=== PATIENT | male | born 1985 | race African-American/Black ===

== ENCOUNTER 2016-10-22 06:55 | Emergency (ER) | payer MEDICAID, OTHER ==
--- NOTE | 2016-10-22 07:15 | EDM.PDOC ---
ED HPI GENERAL MEDICAL PROBLEM - General Chief Complaint: Neck Problem Stated Complaint: NECK PAIN Time Seen by Provider: 10/22/16 07:15 Source of Information: Reports: Patient - History of Present Illness INITIAL COMMENTS - FREE TEXT/NARRATIVE: HISTORY AND PHYSICAL: History of present illness: []Patient presents with 2 small areas of abscess on his occiput, he states that he has had several abscesses in the past which were associated with ingrown hair is begins similar and he actually drained to the 3 lesions on his own over the last week. However now this morning he was able to express some thick exudate from one of the lesions in his nuchal folds and there is an area of redness and induration surrounding. I did perform incision and drainage of tooth lesions and was able to express exudate from the more distal lesion and a small amount as he had drained them earlier wounds were cleansed and explored a culture was taken No fever nausea vomiting chills sweats patient is able to move his neck and as full range of motion is limited due to pain is there is an area of induration approximately 1" x 3" ovarian nuchal fold Review of systems: As per history of present illness and below otherwise all systems reviewed and negative. Past medical history: As per history of present illness and as reviewed below otherwise noncontributory. Surgical history: As per history of present illness and as reviewed below otherwise noncontributory. Social history: No reported history of drug or alcohol abuse. Family history: As per history of present illness and as reviewed below otherwise noncontributory. Physical exam: HEENT: Atraumatic, normocephalic, pupils reactive, negative for conjunctival pallor or scleral icterus, mucous membranes moist, throat clear, neck supple, nontender, trachea midline. Lungs: Clear to auscultation, breath sounds equal bilaterally, chest nontender. Heart: S1S2, regular, negative for clicks, rubs, or JVD. Abdomen: Soft, nondistended, nontender. Negative for masses or hepatosplenomegaly. Negative for costovertebral tenderness. Pelvis: Stable nontender. Genitourinary: Deferred. Rectal: Deferred. Extremities: Atraumatic, negative for cords or calf pain. Neurovascular unremarkable. Neuro: Awake, alert, oriented. Cranial nerves II through XII unremarkable. Cerebellum unremarkable. Motor and sensory unremarkable throughout. Exam nonfocal. Skin as per history of present illness otherwise remarkable unremarkable Diagnostics: []Wound culture Therapeutics: []I&D Wound is flushed with sterile saline Packed with half-inch iodoform Rocephin 1 g IM Bactrim double strength by mouth now and twice a day #20 no refill Follow-up in clinic in 48 hours for recheck and wound care if unable to gain appointment return to ER for repacking and wound care Impression: []Abscess with surrounding cellulitis Definitive disposition and diagnosis as appropriate pending reevaluation and review of above. Neck Pain Score (Numeric/FACES): 10 - Related Data Allergies Allergy/AdvReac Type Severity Reaction Status Date / Time No Known Allergies Allergy Verified 06/20/13 16:54 Home Meds: Home Meds . [No Known Home Meds] 06/20/13 [History] Past Medical History - Past Health History Medical/Surgical History: Denies Medical/Surgical History Social & Family History - Alcohol Use Days Per Week of Alcohol Use: 0 - Recreational Drug Use Recreational Drug Use: No ED ROS GENERAL - Review of Systems Review Of Systems: ROS reveals no pertinent complaints other than HPI. ED EXAM, GENERAL - Physical Exam Exam: See Below Course - Vital Signs Last Recorded V/S: Last Vital Signs Temp 36.6 C 10/22/16 07:10 Pulse 109 H 10/22/16 07:10 Resp 16 10/22/16 07:10 BP 164/101 H 10/22/16 07:10 Pulse Ox 96 10/22/16 07:10 - Orders/Labs/Meds Orders: Active Orders 24 hr Category Date Time Status Sulfamethoxazole/Trimethoprim [Septra DS] Med 10/22/16 08:19 Once 1 tab PO ONETIME ONE cefTRIAXone [Rocephin] 1,000 mg Med 10/22/16 08:19 Ordered Lidocaine 1% [Xylocaine-MPF 1%] 4 ml IM ONETIME Medication Orders Ceftriaxone Sodium 1,000 mg/ (Lidocaine HCl) 4 mls @ 4 mls/sec IM ONETIME ONE Stop: 10/22/16 08:20 Meds: Medications Generic Name Dose Route Start Last Admin Trade Name Freq PRN Reason Stop Dose Admin Ceftriaxone Sodium 1,000 mg/ 4 mls @ 4 mls/sec 10/22/16 08:19 Lidocaine HCl IM 10/22/16 08:20 ONETIME ONE Discontinued Medications Generic Name Dose Route Start Last Admin Trade Name Fior PRN Reason Stop Dose Admin Lidocaine/Epinephrine 20 ml 10/22/16 07:32 Xylocaine 1% With Epinephrine 1:100,000 INJECT 10/22/16 07:33 ONETIME ONE Departure - Departure Time of Disposition: 08:24 Disposition: Home, Self-Care 01 Condition: Good Clinical Impression: Abscess, Cellulitis - Discharge Information Forms: ED Department Discharge Additional Instructions: Continue medication as prescribed Change dressing if becomes soiled or bleeds through Leave packing material in place until recheck Follow-up with the clinic in 48 hours for wound care, if unable to gain an appointment with the clinic return to emergency room for continued management Nursing will provide ER referral [facility] [address] [place] [id number] The following information is given to patients seen in the emergency department who are being discharged to home. This information is to outline your options for follow-up care. We provide all patients seen in our emergency department with a follow-up referral. The need for follow-up, as well as the timing and circumstances, are variable depending upon the specifics of your emergency department visit. If you don't have a primary care physician on staff, we will provide you with a referral. We always advise you to contact your personal physician following an emergency department visit to inform them of the circumstance of the visit and for follow-up with them and/or the need for any referrals to a consulting specialist. The emergency department will also refer you to a specialist when appropriate. This referral assures that you have the opportunity for follow-up care with a specialist. All of these measure are taken in an effort to provide you with optimal care, which includes your follow-up. Under all circumstances we always encourage you to contact your private physician who remains a resource for coordinating your care. When calling for follow-up care, please make the office aware that this follow-up is from your recent emergency room visit. If for any reason you are refused follow-up, please contact the [facility] emergency department at and asked to speak to the emergency department charge nurse. - My Orders Last 24 Hours: My Active Orders 10/22/16 08:19 Sulfamethoxazole/Trimethoprim [Septra DS] 1 tab PO ONETIME ONE cefTRIAXone [Rocephin] 1,000 mg Lidocaine 1% [Xylocaine-MPF 1%] 4 ml IM ONETIME - Assessment/Plan Last 24 Hours: My Active Orders 10/22/16 08:19 Sulfamethoxazole/Trimethoprim [Septra DS] 1 tab PO ONETIME ONE cefTRIAXone [Rocephin] 1,000 mg Lidocaine 1% [Xylocaine-MPF 1%] 4 ml IM ONETIME
[2016-10-22] MEDS ORDERED: Lidocaine 1% with EPINEPHrine 1:100,000 20 ML MDV INJECT ONE (07:32)
[2016-10-22] MEDS ORDERED: cefTRIAXone 1,000 MG in Lidocaine 1% 4 ML IM ONE (08:19)
[2016-10-22] MEDS ORDERED: Sulfamethoxazole/Trimethoprim 800-160 MG Tab PO ONE (08:19)
[2016-10-22 09:16] VITALS: BP 144/88
== END 2016-10-22 09:00 | disposition home or self-care (01) ==
LOC: EEVIPCON 06:55 → MW.ED 06:55
DX: L02.811 Cutaneous abscess of head [any part, except face] (principal); L03.811 Cellulitis of head [any part, except face]
CPT/HCPCS: 10061; 87070; 96372; 99283; A9270; J0696; 87077; 87186

== ENCOUNTER 2016-10-25 19:58 | Emergency (ER) | payer MEDICAID ==
--- NOTE | 2016-10-25 20:56 | EDM.PDOC ---
ED HPI GENERAL MEDICAL PROBLEM - General Chief Complaint: Wound Recheck Stated Complaint: BACK PAIN Time Seen by Provider: 10/25/16 20:53 Source of Information: Reports: Patient - History of Present Illness INITIAL COMMENTS - FREE TEXT/NARRATIVE: HISTORY AND PHYSICAL: History of present illness: Patient presents as a known patient to me is following with Dr. May for wound care, I performed I&D for him on Friday his packing came out of his wounds, cellulitis is improved to remains some induration over the nuchal fold I was able to per express about a half a teaspoon of exudate from the wound and flushed prior to repacking No fever nausea vomiting chills sweats Review of systems: As per history of present illness and below otherwise all systems reviewed and negative. Past medical history: As per history of present illness and as reviewed below otherwise noncontributory. Surgical history: As per history of present illness and as reviewed below otherwise noncontributory. Social history: No reported history of drug or alcohol abuse. Family history: As per history of present illness and as reviewed below otherwise noncontributory. Physical exam: HEENT: Atraumatic, normocephalic, pupils reactive, negative for conjunctival pallor or scleral icterus, mucous membranes moist, throat clear, neck supple, nontender, trachea midline. Lungs: Clear to auscultation, breath sounds equal bilaterally, chest nontender. Heart: S1S2, regular, negative for clicks, rubs, or JVD. Abdomen: Soft, nondistended, nontender. Negative for masses or hepatosplenomegaly. Negative for costovertebral tenderness. Pelvis: Stable nontender. Genitourinary: Deferred. Rectal: Deferred. Extremities: Atraumatic, negative for cords or calf pain. Neurovascular unremarkable. Neuro: Awake, alert, oriented. Cranial nerves II through XII unremarkable. Cerebellum unremarkable. Motor and sensory unremarkable throughout. Exam nonfocal. Skin I&D sites on the nuchal folds with induration 1" x 3" no redness warmth mild tenderness wound care as above Diagnostics: [] Therapeutics: []Continue Bactrim [place] when necessary as previously prescribed Wound is flushed and repacked Follow-up with Dr. May on Friday or return to ER as needed Impression: []Follow-up wound care Definitive disposition and diagnosis as appropriate pending reevaluation and review of above. back of neck area Pain Score (Numeric/FACES): 4 - Related Data Allergies Allergy/AdvReac Type Severity Reaction Status Date / Time No Known Allergies Allergy Verified 10/25/16 20:11 Home Meds: Home Meds . [No Known Home Meds] 06/20/13 [History] Past Medical History - Past Health History Medical/Surgical History: Denies Medical/Surgical History HEENT History: Reports: None Cardiovascular History: Reports: None Respiratory History: Reports: None Gastrointestinal History: Reports: None Genitourinary History: Reports: None Musculoskeletal History: Reports: None Neurological History: Reports: None Psychiatric History: Reports: None Endocrine/Metabolic History: Reports: None Hematologic History: Reports: None Immunologic History: Reports: None Oncologic (Cancer) History: Reports: None Dermatologic History: Reports: None - Infectious Disease History Infectious Disease History: Reports: Chicken Pox - Past Surgical History Dermatological Surgical History: Reports: Other (See Below) Social & Family History - Family History Family Medical History: Noncontributory - Tobacco Use Smoking Status *Q: Never Smoker Second Hand Smoke Exposure: No - Caffeine Use Caffeine Use: Reports: Soda - Alcohol Use Days Per Week of Alcohol Use: 0 - Recreational Drug Use Recreational Drug Use: No ED ROS GENERAL - Review of Systems Review Of Systems: ROS reveals no pertinent complaints other than HPI. ED EXAM, GENERAL - Physical Exam Exam: See Below Course - Vital Signs Last Recorded V/S: Last Vital Signs Temp 36.3 C 10/25/16 20:11 Pulse 92 10/25/16 20:11 Resp 18 10/25/16 20:11 BP 150/91 H 10/25/16 20:11 Pulse Ox 100 10/25/16 20:11 Departure - Departure Time of Disposition: 20:55 Disposition: Home, Self-Care 01 Condition: Good Clinical Impression: Abscess - Discharge Information Forms: ED Department Discharge Additional Instructions: T medication as prescribed Follow-up with Dr. May on Friday for continued wound care or return to ER as needed throughout the weekend The following information is given to patients seen in the emergency department who are being discharged to home. This information is to outline your options for follow-up care. We provide all patients seen in our emergency department with a follow-up referral. The need for follow-up, as well as the timing and circumstances, are variable depending upon the specifics of your emergency department visit. If you don't have a primary care physician on staff, we will provide you with a referral. We always advise you to contact your personal physician following an emergency department visit to inform them of the circumstance of the visit and for follow-up with them and/or the need for any referrals to a consulting specialist. The emergency department will also refer you to a specialist when appropriate. This referral assures that you have the opportunity for follow-up care with a specialist. All of these measure are taken in an effort to provide you with optimal care, which includes your follow-up. Under all circumstances we always encourage you to contact your private physician who remains a resource for coordinating your care. When calling for follow-up care, please make the office aware that this follow-up is from your recent emergency room visit. If for any reason you are refused follow-up, please contact the [facility] emergency department at and asked to speak to the emergency department charge nurse.
[2016-10-25 21:17] VITALS: BP 166/102
== END 2016-10-25 21:20 | disposition home or self-care (01) ==
LOC: MW.ED 19:58
DX: L02.11 Cutaneous abscess of neck (principal)
CPT/HCPCS: 99282

== ENCOUNTER 2016-11-13 14:51 | Inpatient (IN) | payer MEDICAID, SELFPAY ==
[2016-11-13] MEDS ORDERED: Insulin Regular, Human 100 Units/ML 10 ML Vial IVPUSH ONE ×2 (15:08→16:22)
[2016-11-13] MEDS ORDERED: Ondansetron 4 MG/2 ML SDV IVPUSH ONE (15:08)
[2016-11-13] MEDS ORDERED: Sodium Chloride 0.9% 1,000 ML IV ONE ×4 (15:08→17:39)
--- NOTE | 2016-11-13 15:24 | EDM.PDOC ---
ED HPI GENERAL MEDICAL PROBLEM - General Chief Complaint: Diabetic Complaint Stated Complaint: VOMITING Time Seen by Provider: 11/13/16 15:19 Source of Information: Reports: Patient, Old Records History Limitations: Reports: No Limitations - History of Present Illness INITIAL COMMENTS - FREE TEXT/NARRATIVE: HISTORY AND PHYSICAL: [] 31-year-old black male presenting with nausea vomiting 15 hours History of Present Illness: []This gentleman was diagnosed yesterday with diabetes/heme: A1c 14. Urine with over 1000 glucose Family history significant for mother and maternal grandmother with diabetes and hypertension. Patient has not seen medical personnel since he was a child /teenager until just recently with employment physical . Review of Systems: As per history of present illness and below otherwise all systems reviewed and negative. Past medical history: As per history of present illness and as reviewed below otherwise noncontributory. Surgical history: As per history of present illness and as reviewed below otherwise noncontributory. Social history: No reported history of drug or alcohol abuse. Family history: As per history of present illness and as reviewed below otherwise noncontributory. Physical exam: Alert and oriented male skin is moist - warm. HEENT: Atraumatic, normocehpalic, pupils reactive, negative for conjunctival pallor or scleral icterus, mucous membranes moist, throat clear, neck supple, nontender, trachea midline. Lungs: Clear to auscultation, breath sounds equal bilaterally, chest non tender. Heart: S1S2, regular, negative for clicks, rubs, or JVD. Abdomen: Soft, rounded, mild tenderness with palpation. No rebound no guarding. Negative for masses or hepatossplenmegaly. Negative for costovertebral tenderness. Pelvis: Stable nontender. Genitourinary: Deferred. Rectal: Deferred Extremities: Atraumatic, negative for cords or calf pain. No peripheral edema. Pulses 2+ pedal Neurovascular unremarkable. Neuro: Awake, alert, oriented. Cranial nerves II through XII unremarkable. Cerebellum unremarkable. Motor and sensory unremarkable throughout. Exam nonfocal. Have discussed case with Dr. Steel as well as Dr. Jef Potter and Dr. Potter is in agreement for inpatient admission for diabetic ketoacidosis Patient is tolerated all procedures well Diagnostics: [CBC CMP amylase lipase UA] Therapeutics: [IV normal saline, Zofran IV insulin and sodium bicarbonate] Impression: [Hyperglycemia] Diabetic ketoacidosis Plan: [] Admit to ICU Definitive disposition and diagnosis as appropriate pending reevaluation and review of above. Onset: Gradual Duration: Hour(s): ( 15) Right Flank Pain Score (Numeric/FACES): 6 - Related Data Allergies Allergy/AdvReac Type Severity Reaction Status Date / Time No Known Allergies Allergy Verified 11/13/16 15:11 Home Meds: Home Meds . [No Known Home Meds] 06/20/13 [History] Past Medical History - Past Health History Medical/Surgical History: Denies Medical/Surgical History HEENT History: Reports: None Cardiovascular History: Reports: None Respiratory History: Reports: None Gastrointestinal History: Reports: None Genitourinary History: Reports: None Musculoskeletal History: Reports: None Neurological History: Reports: None Psychiatric History: Reports: None Endocrine/Metabolic History: Reports: None Hematologic History: Reports: None Immunologic History: Reports: None Oncologic (Cancer) History: Reports: None Dermatologic History: Reports: None - Infectious Disease History Infectious Disease History: Reports: MRSA - Past Surgical History Dermatological Surgical History: Reports: Other (See Below) Social & Family History - Family History Family Medical History: Noncontributory - Tobacco Use Smoking Status *Q: Never Smoker Second Hand Smoke Exposure: No - Caffeine Use Caffeine Use: Reports: Soda - Alcohol Use Days Per Week of Alcohol Use: 0 - Recreational Drug Use Recreational Drug Use: No ED ROS GENERAL - Review of Systems Review Of Systems: ROS reveals no pertinent complaints other than HPI. ED EXAM GENERAL NO PERIP PULSE - Physical Exam Exam: See Below (see dictation) EKG INTERPRETATION EKG Date: 11/13/16 Rhythm: Other (sinus tach) Comparison: NA - No Prior EKG Course - Vital Signs Last Recorded V/S: Last Vital Signs Temp 35.9 C 11/13/16 15:12 Pulse 102 H 11/13/16 16:32 Resp 18 11/13/16 16:32 BP 128/81 11/13/16 16:32 Pulse Ox 100 11/13/16 16:32 - Orders/Labs/Meds Orders: Active Orders 24 hr Category Date Time Status Blood Glucose Check, Bedside [RC] ONETIME Care 11/13/16 16:01 Active EKG Documentation Completion [RC] STAT Care 11/13/16 16:25 Active Insulin Regular, Human [NovoLIN R] 100 unit Med 11/13/16 17:15 Active Sodium Chloride 0.9% [Normal Saline] 99 ml IV TITRATE Sodium Chloride 0.9% [Normal Saline] 1,000 ml Med 11/13/16 17:01 Active IV .Bolus Medication Orders Sodium Chloride (Normal Saline) 1,000 mls @ 999 mls/hr IV .Bolus ONE Stop: 11/13/16 18:01 Last Admin: 11/13/16 17:05 Dose: 999 mls/hr Insulin Human Regular 100 unit (/ Sodium Chloride) 100 mls @ 0 mls/hr IV TITRATE AURY; 0.1 UNIT/KG/HR PRN Reason: Protocol Labs: Laboratory Tests 11/13/16 11/13/16 11/13/16 Range/Units 15:02 15:12 15:12 WBC 12.19 H (4.0-11.0) K/uL RBC 6.23 H (4.50-5.90) M/uL Hgb 16.7 (13.0-17.0) g/dL Hct 50.3 H (38.0-50.0) % MCV 80.7 (80.0-98.0) fL MCH 26.8 L (27.0-32.0) pg MCHC 33.2 (31.0-37.0) g/dL RDW Std Deviation 48.0 (28.0-62.0) fl RDW Coeff of Eduardo 16 H (11.0-15.0) % Plt Count 235 (150-400) K/uL MPV 12.20 H (7.40-12.00) fL Neut % (Auto) 82.7 H (48.0-80.0) % Lymph % (Auto) 9.8 L (16.0-40.0) % [place] % (Auto) 7.3 (0.0-15.0) % Eos % (Auto) 0.0 (0.0-7.0) % Baso % (Auto) 0.2 (0.0-1.5) % Neut # (Auto) 10.1 H (1.4-5.7) K/uL Lymph # (Auto) 1.2 (0.6-2.4) K/uL [place] # (Auto) 0.9 H (0.0-0.8) K/uL Eos # (Auto) 0.0 (0.0-0.7) K/uL Baso # (Auto) 0.0 (0.0-0.1) K/uL Nucleated RBC % 0.0 /100WBC Nucleated RBCs # 0 K/uL ABG pH (7.35-7.45) ABG pCO2 (35-45) mmHG ABG pO2 (75-100) mmHG ABG HCO3 (22-26) mEq/L ABG Total CO2 ABG Base Excess (-2.0-2.0) Lactate (0.20-2.00) mmol/L Sodium 138 (136-146) mmol/L Potassium 4.4 (3.5-5.1) mmol/L Chloride 105 (98-110) mmol/L Carbon Dioxide 7 L (21-31) mmol/L BUN 16 (6.0-23.0) mg/dL Creatinine 2.2 H (0.6-1.5) mg/dL Est Cr Clr Drug Dosing 55.55 mL/min Estimated GFR (MDRD) 42.0 ml/min Glucose 442 H (60-110) mg/dL POC Glucose 351 H (60-110) mg/dL Calcium 10.0 (8.8-10.8) mg/dL Total Bilirubin 0.5 (0.1-1.5) mg/dL AST 13 (5-40) IU/L ALT 28 (8-54) IU/L Alkaline Phosphatase 174 H (40-150) Creatine Kinase 56 (9-236) IU/L CK-MB (CK-2) 0.6 (0-6.6) ng/ml Troponin I (0.0-0.29) NG/ML Total Protein 9.6 H (6.0-8.0) g/dL Albumin 4.9 (3.5-5.0) g/dL Globulin 4.7 H (2.0-3.5) g/dL Albumin/Globulin Ratio 1.0 L (1.3-2.8) Amylase (10-90) U/L Lipase (7-80) U/L Urine Color Urine Appearance Urine pH (5.0-8.0) Ur Specific [place] (1.001-1.035) Urine Protein (NEGATIVE) mg/dL Urine Glucose (UA) (NEGATIVE) mg/dL Urine Ketones (NEGATIVE) mg/dL Urine Occult Blood (NEGATIVE) Urine Nitrite (NEGATIVE) Urine Bilirubin (NEGATIVE) Urine Ictotest Urine Urobilinogen (<2.0) EU/dL Ur Leukocyte Esterase (NEGATIVE) Urine RBC (0-2/HPF) Urine WBC (0-5/HPF) Ur Epithelial Cells (NONE-FEW) Urine Bacteria (NEGATIVE) 11/13/16 11/13/16 11/13/16 Range/Units 15:12 15:12 15:12 WBC (4.0-11.0) K/uL RBC (4.50-5.90) M/uL Hgb (13.0-17.0) g/dL Hct (38.0-50.0) % MCV (80.0-98.0) fL MCH (27.0-32.0) pg MCHC (31.0-37.0) g/dL RDW Std Deviation (28.0-62.0) fl RDW Coeff of Eduardo (11.0-15.0) % Plt Count (150-400) K/uL MPV (7.40-12.00) fL Neut % (Auto) (48.0-80.0) % Lymph % (Auto) (16.0-40.0) % [place] % (Auto) (0.0-15.0) % Eos % (Auto) (0.0-7.0) % Baso % (Auto) (0.0-1.5) % Neut # (Auto) (1.4-5.7) K/uL Lymph # (Auto) (0.6-2.4) K/uL [place] # (Auto) (0.0-0.8) K/uL Eos # (Auto) (0.0-0.7) K/uL Baso # (Auto) (0.0-0.1) K/uL Nucleated RBC % /100WBC Nucleated RBCs # K/uL ABG pH (7.35-7.45) ABG pCO2 (35-45) mmHG ABG pO2 (75-100) mmHG ABG HCO3 (22-26) mEq/L ABG Total CO2 ABG Base Excess (-2.0-2.0) Lactate 2.9 H (0.20-2.00) mmol/L Sodium (136-146) mmol/L Potassium (3.5-5.1) mmol/L Chloride (98-110) mmol/L Carbon Dioxide (21-31) mmol/L BUN (6.0-23.0) mg/dL Creatinine (0.6-1.5) mg/dL Est Cr Clr Drug Dosing mL/min Estimated GFR (MDRD) ml/min Glucose (60-110) mg/dL POC Glucose (60-110) mg/dL Calcium (8.8-10.8) mg/dL Total Bilirubin (0.1-1.5) mg/dL AST (5-40) IU/L ALT (8-54) IU/L Alkaline Phosphatase (40-150) Creatine Kinase (9-236) IU/L CK-MB (CK-2) (0-6.6) ng/ml Troponin I < 0.10 (0.0-0.29) NG/ML Total Protein (6.0-8.0) g/dL Albumin (3.5-5.0) g/dL Globulin (2.0-3.5) g/dL Albumin/Globulin Ratio (1.3-2.8) Amylase 48 (10-90) U/L Lipase 33 (7-80) U/L Urine Color Urine Appearance Urine pH (5.0-8.0) Ur Specific [place] (1.001-1.035) Urine Protein (NEGATIVE) mg/dL Urine Glucose (UA) (NEGATIVE) mg/dL Urine Ketones (NEGATIVE) mg/dL Urine Occult Blood (NEGATIVE) Urine Nitrite (NEGATIVE) Urine Bilirubin (NEGATIVE) Urine Ictotest Urine Urobilinogen (<2.0) EU/dL Ur Leukocyte Esterase (NEGATIVE) Urine RBC (0-2/HPF) Urine WBC (0-5/HPF) Ur Epithelial Cells (NONE-FEW) Urine Bacteria (NEGATIVE) 11/13/16 11/13/16 11/13/16 Range/Units 16:13 16:20 16:50 WBC (4.0-11.0) K/uL RBC (4.50-5.90) M/uL Hgb (13.0-17.0) g/dL Hct (38.0-50.0) % MCV (80.0-98.0) fL MCH (27.0-32.0) pg MCHC (31.0-37.0) g/dL RDW Std Deviation (28.0-62.0) fl RDW Coeff of Eduardo (11.0-15.0) % Plt Count (150-400) K/uL MPV (7.40-12.00) fL Neut % (Auto) (48.0-80.0) % Lymph % (Auto) (16.0-40.0) % [place] % (Auto) (0.0-15.0) % Eos % (Auto) (0.0-7.0) % Baso % (Auto) (0.0-1.5) % Neut # (Auto) (1.4-5.7) K/uL Lymph # (Auto) (0.6-2.4) K/uL [place] # (Auto) (0.0-0.8) K/uL Eos # (Auto) (0.0-0.7) K/uL Baso # (Auto) (0.0-0.1) K/uL Nucleated RBC % /100WBC Nucleated RBCs # K/uL ABG pH 7.107 L* (7.35-7.45) ABG pCO2 14 L (35-45) mmHG ABG pO2 121 H (75-100) mmHG ABG HCO3 4 L (22-26) mEq/L ABG Total CO2 4.2 ABG Base Excess -22.9 L (-2.0-2.0) Lactate (0.20-2.00) mmol/L Sodium (136-146) mmol/L Potassium (3.5-5.1) mmol/L Chloride (98-110) mmol/L Carbon Dioxide (21-31) mmol/L BUN (6.0-23.0) mg/dL Creatinine (0.6-1.5) mg/dL Est Cr Clr Drug Dosing mL/min Estimated GFR (MDRD) ml/min Glucose (60-110) mg/dL POC Glucose 303 H (60-110) mg/dL Calcium (8.8-10.8) mg/dL Total Bilirubin (0.1-1.5) mg/dL AST (5-40) IU/L ALT (8-54) IU/L Alkaline Phosphatase (40-150) Creatine Kinase (9-236) IU/L CK-MB (CK-2) (0-6.6) ng/ml Troponin I (0.0-0.29) NG/ML Total Protein (6.0-8.0) g/dL Albumin (3.5-5.0) g/dL Globulin (2.0-3.5) g/dL Albumin/Globulin Ratio (1.3-2.8) Amylase (10-90) U/L Lipase (7-80) U/L Urine Color YELLOW Urine Appearance CLEAR Urine pH 5.5 (5.0-8.0) Ur Specific [place] >= 1.030 (1.001-1.035) Urine Protein 30 (NEGATIVE) mg/dL Urine Glucose (UA) 500 H (NEGATIVE) mg/dL Urine Ketones >=80 (NEGATIVE) mg/dL Urine Occult Blood MODERATE (NEGATIVE) Urine Nitrite NEGATIVE (NEGATIVE) Urine Bilirubin SMALL H (NEGATIVE) Urine Ictotest NEGATIVE Urine Urobilinogen 0.2 (<2.0) EU/dL Ur Leukocyte Esterase NEGATIVE (NEGATIVE) Urine RBC 0-3 (0-2/HPF) Urine WBC 0-1 (0-5/HPF) Ur Epithelial Cells RARE (NONE-FEW) Urine Bacteria RARE (NEGATIVE) Meds: Medications Generic Name Dose Route Start Last Admin Trade Name Freq PRN Reason Stop Dose Admin Sodium Chloride 1,000 mls @ 999 mls/hr 11/13/16 17:01 11/13/16 17:05 Normal Saline IV 11/13/16 18:01 999 mls/hr .Bolus ONE Administration Insulin Human Regular 100 unit 100 mls @ 0 mls/hr 11/13/16 17:15 / Sodium Chloride IV TITRATE AURY Protocol 0.1 UNIT/KG/HR Discontinued Medications Generic Name Dose Route Start Last Admin Trade Name Freq PRN Reason Stop Dose Admin Sodium Chloride 1,000 mls @ 999 mls/hr 11/13/16 15:08 11/13/16 15:17 Normal Saline IV 11/13/16 16:08 999 mls/hr STAT ONE Administration Sodium Chloride 1,000 mls @ 999 mls/hr 11/13/16 16:02 11/13/16 16:29 Normal Saline IV 11/13/16 17:02 999 mls/hr STAT ONE Administration Insulin Human Regular 5 unit 11/13/16 15:08 11/13/16 15:27 Novolin R IVPUSH 11/13/16 15:09 5 unit ONETIME ONE Administration Protocol Insulin Human Regular 5 unit 11/13/16 16:22 11/13/16 16:29 Novolin R IVPUSH 11/13/16 16:23 5 units ONETIME ONE Administration Protocol Ondansetron HCl 8 mg 11/13/16 15:08 11/13/16 15:23 Zofran IVPUSH 11/13/16 15:09 8 mg ONETIME ONE Administration Sodium Bicarbonate 5 meq 11/13/16 17:02 Sodium Bicarbonate 4.2% IVPUSH 11/13/16 17:03 NOW STA Departure - Departure Time of Disposition: 17:31 Disposition: Admitted As Inpatient 64 Condition: Fair Clinical Impression: Hyperglycemia Diabetic ketoacidosis Qualifiers: Diabetes mellitus type: other specified (including CORRY) Diabetes mellitus complication detail: without coma Qualified Code(s): E13.10 - Other specified diabetes mellitus with ketoacidosis without coma - Discharge Information - My Orders Last 24 Hours: My Active Orders 11/13/16 16:01 Blood Glucose Check, Bedside [RC] ONETIME 11/13/16 16:25 EKG Documentation Completion [RC] STAT 11/13/16 17:01 Sodium Chloride 0.9% [Normal Saline] 1,000 ml IV .Bolus 11/13/16 17:15 Insulin Regular, Human [NovoLIN R] 100 unit Sodium Chloride 0.9% [Normal Saline] 99 ml IV TITRATE - Assessment/Plan Last 24 Hours: My Active Orders 11/13/16 16:01 Blood Glucose Check, Bedside [RC] ONETIME 11/13/16 16:25 EKG Documentation Completion [RC] STAT 11/13/16 17:01 Sodium Chloride 0.9% [Normal Saline] 1,000 ml IV .Bolus 11/13/16 17:15 Insulin Regular, Human [NovoLIN R] 100 unit Sodium Chloride 0.9% [Normal Saline] 99 ml IV TITRATE
--- NOTE | 2016-11-13 15:50 | CR ---
EXAMINATION: Portable chest radiograph. HISTORY: Shortness of breath. FINDINGS: The trachea is midline. The cardiomediastinal silhouette is within normal limits. No pulmonary infilt rates, effusions or pneumothorax. Osseous structures appear unremarkable. IMPRESSION: No acute cardiopulmonary process.
[2016-11-13] MEDS ORDERED: Sodium Bicarbonate 8.4% 50 MEQ/50 ML Syringe IVPUSH ONE (17:44)
[2016-11-13] MEDS ORDERED: Sodium Chloride 0.9% 1,000 ML IV SCH (20:15)
--- NOTE | 2016-11-13 20:44 | PCM.HP ---
H&P History of Present Illness - General Admit Problem/Dx: Admission Diagnosis/Problem Admission Diagnosis/Problem Ketoacidosis - History of Present Illness Initial Comments - Free Text/Narative: 31 yo male who presents with a one day history of nausea and vomiting. He has a several month history of increased thirst and urination. 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 He was instructed by work to see a physician in clinic. He saw Dr. Sunshine yesterday and was informed to come to the ED when he was noted to have blood sugar above 400 and HgA1c of 14.6. In the ED he was noted to be in DKA and treated with IV fluids and insulin drip. Right Flank Pain Score (Numeric/FACES): 6 - Related Data Allergies/Adverse Reactions: Allergies Allergy/AdvReac Type Severity Reaction Status Date / Time No Known Allergies Allergy Verified 11/13/16 15:11 Home Medications: Home Meds . [No Known Home Meds] 06/20/13 [History] Past Medical History - Past Health History Medical/Surgical History: Denies Medical/Surgical History HEENT History: Reports: None Cardiovascular History: Reports: None Respiratory History: Reports: None Gastrointestinal History: Reports: None Genitourinary History: Reports: None Musculoskeletal History: Reports: None Neurological History: Reports: None Psychiatric History: Reports: None Endocrine/Metabolic History: Reports: None Hematologic History: Reports: None Immunologic History: Reports: None Oncologic (Cancer) History: Reports: None Dermatologic History: Reports: None - Infectious Disease History Infectious Disease History: Reports: MRSA - Past Surgical History Dermatological Surgical History: Reports: Other (See Below) Social & Family History - Family History Family Medical History: Noncontributory - Tobacco Use Smoking Status *Q: Never Smoker Second Hand Smoke Exposure: No - Caffeine Use Caffeine Use: Reports: Soda - Alcohol Use Days Per Week of Alcohol Use: 0 - Recreational Drug Use Recreational Drug Use: No H&P Review of Systems - Review of Systems: Review Of Systems: ROS reveals no pertinent complaints other than HPI. Exam - Exam Exam: See Below - Vital Signs Vital Signs: Last Vital Signs Temp 35.9 C 11/13/16 15:12 Pulse 98 11/13/16 17:50 Resp 16 11/13/16 17:50 BP 130/73 11/13/16 17:50 Pulse Ox 99 11/13/16 17:50 Weight: 134 kg - Exam General: Alert, Oriented, 4 Neck: Supple Lungs: Clear to Auscultation, Normal Respiratory Effort Cardiovascular: Regular Rate, Regular Rhythm GI/Abdominal Exam: Normal Bowel Sounds, Soft, Non-Tender, No Distention Back Exam: Normal Inspection Extremities: Normal Inspection, Normal Range of Motion, Non-Tender, No Pedal Edema, Normal Capillary Refill Skin: Warm, Dry, Intact - Patient Data Lab Results Last 24 hrs: Laboratory Results - last 24 hr 11/13/16 11/13/16 Range/Units 18:58 20:08 POC Glucose 246 H 202 H (60-110) mg/dL Result Diagrams: 11/14/16 02:58 11/14/16 02:58 *Q Meaningful Use (ADM) - VTE *Q VTE Criteria *Q: - Stroke *Q Stroke Criteria *Q: - AMI *Q AMI Criteria *Q: Problem List Initiated/Reviewed/Updated: Yes Orders Last 24hrs: Active Orders 24 hr Category Date Time Status Patient Status [ADT] Stat ADT 11/13/16 17:26 Active Accu Check [Blood Glucose Check, Bedside] [RC] Q1H Care 11/13/16 20:08 Active Antiembolic Devices [RC] PER UNIT ROUTINE Care 11/13/16 20:38 Ordered Intake and Output [RC] QSHIFT Care 11/13/16 20:37 Ordered Oxygen Therapy [RC] PRN Care 11/13/16 20:37 Ordered VTE/DVT Education [RC] PER UNIT ROUTINE Care 11/13/16 20:37 Ordered Vital Signs [RC] Q4H Care 11/13/16 20:37 Ordered Nothing per Oral Now Diet [DIET] Diet 11/13/16 Breakfast Ordered BMP [BASIC METABOLIC PANEL,BMP] [CHEM] Q6H Lab 11/13/16 21:00 Ordered BMP [BASIC METABOLIC PANEL,BMP] [CHEM] Q6H Lab 11/14/16 03:00 Ordered BMP [BASIC METABOLIC PANEL,BMP] [CHEM] Q6H Lab 11/14/16 09:00 Ordered BMP [BASIC METABOLIC PANEL,BMP] [CHEM] Q6H Lab 11/14/16 15:00 Ordered CBC WITH AUTO DIFF [HEME] AM Lab 11/14/16 05:11 Ordered LACTIC ACID,WHOLE BLOOD [BG] Q6H Lab 11/13/16 21:00 Ordered Insulin Regular, Human [NovoLIN R] 100 unit Med 11/13/16 20:15 Active Sodium Chloride 0.9% [Normal Saline] 99 ml IV TITRATE Ondansetron [Zofran] Med 11/13/16 20:37 Ordered 4 mg IVPUSH Q4H PRN Sodium Chloride 0.9% [Normal Saline] 1,000 ml Med 11/13/16 17:39 Active IV .Bolus Sodium Chloride 0.9% [Normal Saline] 1,000 ml Med 11/13/16 20:15 Active IV ASDIRECTED Sequential Compression Device [OM.PC] Per Unit Routine Oth 11/13/16 20:37 Ordered Resuscitation Status Routine Resus Stat 11/13/16 20:37 Ordered Medication Orders Sodium Chloride (Normal Saline) 1,000 mls @ 300 mls/hr IV .Bolus ONE Stop: 11/13/16 20:58 Last Admin: 11/13/16 17:48 Dose: 300 mls/hr Insulin Human Regular 100 unit (/ Sodium Chloride) 100 mls @ 8 mls/hr IV TITRATE AURY; 8 UNIT/HR PRN Reason: Protocol Sodium Chloride (Normal Saline) 1,000 mls @ 200 mls/hr IV ASDIRECTED AURY Assessment/Plan Comment:: 31 yo male admitted with DKA, dehydration, and likely acute kidney injury. We will treat with IV fluids, insulin drip and trend anion gap.
[2016-11-13] MEDS ORDERED: Dextrose 5%-0.9% NaCl 1,000 ML IV SCH (21:15)
[2016-11-13] MEDS: Ondansetron 4 MG/2 ML SDV IVPUSH PRN (21:25)
[2016-11-13 21:40] LABS: CHLORIDE,CL 118 mmol/L (98-110); SODIUM,NA 145 mmol/L (136-146)
[2016-11-13] MEDS ORDERED: Potassium Phosphates 3 mMole/ML 5 ML SDV IV ONE (22:49)
[2016-11-13] MEDS: Dextrose 5% in Water 1,000 ML IV SCH (23:45)
[2016-11-14] MEDS ORDERED: POTASSIUM PHOSPHATES IV ONE ×2 (00:30)
[2016-11-14] MEDS ORDERED: WATER IV ONE ×2 (00:30)
[2016-11-14] MEDS ORDERED: DEXTROSE IV ONE ×2 (00:30)
[2016-11-14 03:27] LABS: CHLORIDE,CL 117 mmol/L (98-110); SODIUM,NA 142 mmol/L (136-146)
[2016-11-14] MEDS: Phosphorus #1 250 MG Tab PO SCH ×3 (07:48→17:16)
[2016-11-14] MEDS: Dextrose 5% in Water 1,000 ML IV SCH ×3 (08:06→16:12)
--- NOTE | 2016-11-14 08:09 | PCM.PN ---
- Review of Systems Systems Review Comment:: nausea improved, feeling better - Patient Data Vitals - Most Recent: Last Vital Signs Temp 36.7 C 11/14/16 04:00 Pulse 98 11/13/16 17:50 Resp 16 11/14/16 07:00 BP 125/84 11/14/16 07:00 Pulse Ox 96 11/14/16 07:00 Weight - Most Recent: 134 kg I&O - Last 24 Hours: Intake & Output 11/13/16 11/14/16 11/14/16 22:59 06:59 14:59 Intake Total 900 1150 Output Total 600 1550 Balance 300 -400 Lab Results Last 24 Hours: Laboratory Results - last 24 hr 11/13/16 11/13/16 11/13/16 Range/Units 18:58 20:08 21:12 WBC (4.0-11.0) K/uL RBC (4.50-5.90) M/uL Hgb (13.0-17.0) g/dL Hct (38.0-50.0) % MCV (80.0-98.0) fL MCH (27.0-32.0) pg MCHC (31.0-37.0) g/dL RDW Std Deviation (28.0-62.0) fl RDW Coeff of Eduardo (11.0-15.0) % Plt Count (150-400) K/uL MPV (7.40-12.00) fL Neut % (Auto) (48.0-80.0) % Lymph % (Auto) (16.0-40.0) % [place] % (Auto) (0.0-15.0) % Eos % (Auto) (0.0-7.0) % Baso % (Auto) (0.0-1.5) % Neut # (Auto) (1.4-5.7) K/uL Lymph # (Auto) (0.6-2.4) K/uL [place] # (Auto) (0.0-0.8) K/uL Eos # (Auto) (0.0-0.7) K/uL Baso # (Auto) (0.0-0.1) K/uL Nucleated RBC % /100WBC Nucleated RBCs # K/uL Lactate 1.4 (0.20-2.00) mmol/L Sodium (136-146) mmol/L Potassium (3.5-5.1) mmol/L Chloride (98-110) mmol/L Carbon Dioxide (21-31) mmol/L BUN (6.0-23.0) mg/dL Creatinine (0.6-1.5) mg/dL Est Cr Clr Drug Dosing mL/min Estimated GFR (MDRD) ml/min Glucose (60-110) mg/dL POC Glucose 246 H 202 H (60-110) mg/dL Calcium (8.8-10.8) mg/dL Phosphorus (2.4-4.7) mg/dL Magnesium (1.5-2.3) mEq/L 11/13/16 11/13/16 11/13/16 Range/Units 21:12 21:12 21:12 WBC (4.0-11.0) K/uL RBC (4.50-5.90) M/uL Hgb (13.0-17.0) g/dL Hct (38.0-50.0) % MCV (80.0-98.0) fL MCH (27.0-32.0) pg MCHC (31.0-37.0) g/dL RDW Std Deviation (28.0-62.0) fl RDW Coeff of Eduardo (11.0-15.0) % Plt Count (150-400) K/uL MPV (7.40-12.00) fL Neut % (Auto) (48.0-80.0) % Lymph % (Auto) (16.0-40.0) % [place] % (Auto) (0.0-15.0) % Eos % (Auto) (0.0-7.0) % Baso % (Auto) (0.0-1.5) % Neut # (Auto) (1.4-5.7) K/uL Lymph # (Auto) (0.6-2.4) K/uL [place] # (Auto) (0.0-0.8) K/uL Eos # (Auto) (0.0-0.7) K/uL Baso # (Auto) (0.0-0.1) K/uL Nucleated RBC % /100WBC Nucleated RBCs # K/uL Lactate (0.20-2.00) mmol/L Sodium 145 (136-146) mmol/L Potassium 4.1 (3.5-5.1) mmol/L Chloride 118 H (98-110) mmol/L Carbon Dioxide 7 L (21-31) mmol/L BUN 14 (6.0-23.0) mg/dL Creatinine 1.4 (0.6-1.5) mg/dL Est Cr Clr Drug Dosing 87.29 mL/min Estimated GFR (MDRD) > 60.0 ml/min Glucose 232 H (60-110) mg/dL POC Glucose 195 H (60-110) mg/dL Calcium 8.7 L (8.8-10.8) mg/dL Phosphorus 1.2 L (2.4-4.7) mg/dL Magnesium 1.6 (1.5-2.3) mEq/L 11/13/16 11/13/16 11/14/16 Range/Units 22:10 23:00 00:09 WBC (4.0-11.0) K/uL RBC (4.50-5.90) M/uL Hgb (13.0-17.0) g/dL Hct (38.0-50.0) % MCV (80.0-98.0) fL MCH (27.0-32.0) pg MCHC (31.0-37.0) g/dL RDW Std Deviation (28.0-62.0) fl RDW Coeff of Eduardo (11.0-15.0) % Plt Count (150-400) K/uL MPV (7.40-12.00) fL Neut % (Auto) (48.0-80.0) % Lymph % (Auto) (16.0-40.0) % [place] % (Auto) (0.0-15.0) % Eos % (Auto) (0.0-7.0) % Baso % (Auto) (0.0-1.5) % Neut # (Auto) (1.4-5.7) K/uL Lymph # (Auto) (0.6-2.4) K/uL [place] # (Auto) (0.0-0.8) K/uL Eos # (Auto) (0.0-0.7) K/uL Baso # (Auto) (0.0-0.1) K/uL Nucleated RBC % /100WBC Nucleated RBCs # K/uL Lactate (0.20-2.00) mmol/L Sodium (136-146) mmol/L Potassium (3.5-5.1) mmol/L Chloride (98-110) mmol/L Carbon Dioxide (21-31) mmol/L BUN (6.0-23.0) mg/dL Creatinine (0.6-1.5) mg/dL Est Cr Clr Drug Dosing mL/min Estimated GFR (MDRD) ml/min Glucose (60-110) mg/dL POC Glucose 234 H 256 H 275 H (60-110) mg/dL Calcium (8.8-10.8) mg/dL Phosphorus (2.4-4.7) mg/dL Magnesium (1.5-2.3) mEq/L 11/14/16 11/14/16 11/14/16 Range/Units 01:06 02:06 02:58 WBC (4.0-11.0) K/uL RBC (4.50-5.90) M/uL Hgb (13.0-17.0) g/dL Hct (38.0-50.0) % MCV (80.0-98.0) fL MCH (27.0-32.0) pg MCHC (31.0-37.0) g/dL RDW Std Deviation (28.0-62.0) fl RDW Coeff of Eduardo (11.0-15.0) % Plt Count (150-400) K/uL MPV (7.40-12.00) fL Neut % (Auto) (48.0-80.0) % Lymph % (Auto) (16.0-40.0) % [place] % (Auto) (0.0-15.0) % Eos % (Auto) (0.0-7.0) % Baso % (Auto) (0.0-1.5) % Neut # (Auto) (1.4-5.7) K/uL Lymph # (Auto) (0.6-2.4) K/uL [place] # (Auto) (0.0-0.8) K/uL Eos # (Auto) (0.0-0.7) K/uL Baso # (Auto) (0.0-0.1) K/uL Nucleated RBC % /100WBC Nucleated RBCs # K/uL Lactate (0.20-2.00) mmol/L Sodium 142 (136-146) mmol/L Potassium 4.0 (3.5-5.1) mmol/L Chloride 117 H (98-110) mmol/L Carbon Dioxide 11 L (21-31) mmol/L BUN 12 (6.0-23.0) mg/dL Creatinine 1.5 (0.6-1.5) mg/dL Est Cr Clr Drug Dosing 81.47 mL/min Estimated GFR (MDRD) > 60.0 ml/min Glucose 390 H (60-110) mg/dL POC Glucose 327 H 307 H (60-110) mg/dL Calcium 8.6 L (8.8-10.8) mg/dL Phosphorus 2.3 L (2.4-4.7) mg/dL Magnesium 1.5 (1.5-2.3) mEq/L 11/14/16 11/14/16 11/14/16 Range/Units 02:58 03:30 04:01 WBC 9.43 (4.0-11.0) K/uL RBC 5.24 (4.50-5.90) M/uL Hgb 13.8 (13.0-17.0) g/dL Hct 41.3 (38.0-50.0) % MCV 78.8 L (80.0-98.0) fL MCH 26.3 L (27.0-32.0) pg MCHC 33.4 (31.0-37.0) g/dL RDW Std Deviation 46.6 (28.0-62.0) fl RDW Coeff of Eduardo 16 H (11.0-15.0) % Plt Count 201 (150-400) K/uL MPV 11.90 (7.40-12.00) fL Neut % (Auto) 73.3 (48.0-80.0) % Lymph % (Auto) 15.6 L (16.0-40.0) % [place] % (Auto) 10.8 (0.0-15.0) % Eos % (Auto) 0.1 (0.0-7.0) % Baso % (Auto) 0.2 (0.0-1.5) % Neut # (Auto) 6.9 H (1.4-5.7) K/uL Lymph # (Auto) 1.5 (0.6-2.4) K/uL [place] # (Auto) 1.0 H (0.0-0.8) K/uL Eos # (Auto) 0.0 (0.0-0.7) K/uL Baso # (Auto) 0.0 (0.0-0.1) K/uL Nucleated RBC % 0.0 /100WBC Nucleated RBCs # 0 K/uL Lactate (0.20-2.00) mmol/L Sodium (136-146) mmol/L Potassium (3.5-5.1) mmol/L Chloride (98-110) mmol/L Carbon Dioxide (21-31) mmol/L BUN (6.0-23.0) mg/dL Creatinine (0.6-1.5) mg/dL Est Cr Clr Drug Dosing mL/min Estimated GFR (MDRD) ml/min Glucose (60-110) mg/dL POC Glucose 320 H 341 H (60-110) mg/dL Calcium (8.8-10.8) mg/dL Phosphorus (2.4-4.7) mg/dL Magnesium (1.5-2.3) mEq/L 11/14/16 11/14/16 11/14/16 Range/Units 04:54 06:15 06:56 WBC (4.0-11.0) K/uL RBC (4.50-5.90) M/uL Hgb (13.0-17.0) g/dL Hct (38.0-50.0) % MCV (80.0-98.0) fL MCH (27.0-32.0) pg MCHC (31.0-37.0) g/dL RDW Std Deviation (28.0-62.0) fl RDW Coeff of Eduardo (11.0-15.0) % Plt Count (150-400) K/uL MPV (7.40-12.00) fL Neut % (Auto) (48.0-80.0) % Lymph % (Auto) (16.0-40.0) % [place] % (Auto) (0.0-15.0) % Eos % (Auto) (0.0-7.0) % Baso % (Auto) (0.0-1.5) % Neut # (Auto) (1.4-5.7) K/uL Lymph # (Auto) (0.6-2.4) K/uL [place] # (Auto) (0.0-0.8) K/uL Eos # (Auto) (0.0-0.7) K/uL Baso # (Auto) (0.0-0.1) K/uL Nucleated RBC % /100WBC Nucleated RBCs # K/uL Lactate (0.20-2.00) mmol/L Sodium (136-146) mmol/L Potassium (3.5-5.1) mmol/L Chloride (98-110) mmol/L Carbon Dioxide (21-31) mmol/L BUN (6.0-23.0) mg/dL Creatinine (0.6-1.5) mg/dL Est Cr Clr Drug Dosing mL/min Estimated GFR (MDRD) ml/min Glucose (60-110) mg/dL POC Glucose 303 H 316 H 327 H (60-110) mg/dL Calcium (8.8-10.8) mg/dL Phosphorus (2.4-4.7) mg/dL Magnesium (1.5-2.3) mEq/L Med Orders - Current: Current Medications Insulin Human Regular 100 unit (/ Sodium Chloride) 100 mls @ 8 mls/hr IV TITRATE AURY; 8 UNIT/HR PRN Reason: Protocol Last Titration: 11/14/16 01:10 Dose: 5 unit/hr, 5 mls/hr Dextrose/Water (Dextrose 5% In Water) 1,000 mls @ 250 mls/hr IV ASDIRECTED AURY Last Admin: 11/14/16 08:06 Dose: 250 mls/hr Ondansetron HCl (Zofran) 4 mg IVPUSH Q4H PRN PRN Reason: Nausea Last Admin: 11/13/16 21:25 Dose: 4 mg Sodium Phosphate (Neutra-Phos) 250 mg PO QID AURY Last Admin: 11/14/16 07:48 Dose: 250 mg Discontinued Medications Sodium Chloride (Normal Saline) 1,000 mls @ 999 mls/hr IV STAT ONE Stop: 11/13/16 16:08 Last Admin: 11/13/16 15:17 Dose: 999 mls/hr Sodium Chloride (Normal Saline) 1,000 mls @ 999 mls/hr IV STAT ONE Stop: 11/13/16 17:02 Last Admin: 11/13/16 16:29 Dose: 999 mls/hr Sodium Chloride (Normal Saline) 1,000 mls @ 999 mls/hr IV .Bolus ONE Stop: 11/13/16 18:01 Last Admin: 11/13/16 17:05 Dose: 999 mls/hr Insulin Human Regular 100 unit (/ Sodium Chloride) 100 mls @ 0 mls/hr IV TITRATE AURY; 0.1 UNIT/KG/HR PRN Reason: Protocol Last Admin: 11/13/16 17:47 Dose: 0.1 unit/kg/hr, 13.4 mls/hr Sodium Chloride (Normal Saline) 1,000 mls @ 300 mls/hr IV .Bolus ONE Stop: 11/13/16 20:58 Last Admin: 11/13/16 17:48 Dose: 300 mls/hr Sodium Chloride (Normal Saline) 1,000 mls @ 200 mls/hr IV ASDIRECTED AURY Dextrose/Sodium Chloride (Dextrose 5%-Normal Saline) 1,000 mls @ 200 mls/hr IV ASDIRECTED AURY Last Admin: 11/13/16 21:23 Dose: 200 mls/hr Potassium Phosphate 40 mmole/ (Dextrose/Water) 1,013.3333 mls @ 250 mls/hr IV ONETIME ONE Stop: 11/14/16 04:33 Last Admin: 11/14/16 00:26 Dose: 250 mls/hr Insulin Human Regular (Novolin R) 5 unit IVPUSH ONETIME ONE PRN Reason: Protocol Stop: 11/13/16 15:09 Last Admin: 11/13/16 15:27 Dose: 5 unit Insulin Human Regular (Novolin R) 5 unit IVPUSH ONETIME ONE PRN Reason: Protocol Stop: 11/13/16 16:23 Last Admin: 11/13/16 16:29 Dose: 5 units Ondansetron HCl (Zofran) 8 mg IVPUSH ONETIME ONE Stop: 11/13/16 15:09 Last Admin: 11/13/16 15:23 Dose: 8 mg Potassium Phosphate (Potassium Phosphates) 40 mmole IV ONETIME ONE Stop: 11/13/16 22:50 Last Admin: 11/14/16 00:19 Dose: Not Given Sodium Bicarbonate (Sodium Bicarbonate 4.2%) 5 meq IVPUSH NOW STA Stop: 11/13/16 17:03 Last Admin: 11/13/16 17:59 Dose: Not Given Sodium Bicarbonate (Sodium Bicarbonate 8.4%) 50 meq IVPUSH ONETIME ONE Stop: 11/13/16 17:45 Last Admin: 11/13/16 17:51 Dose: 50 meq - Exam General: Alert, Cooperative Neck: Supple Lungs: Clear to Auscultation, Normal Respiratory Effort Cardiovascular: Regular Rate, Regular Rhythm GI/Abdominal Exam: Normal Bowel Sounds, Soft, Non-Tender, No Distention Extremities: Non-Tender, No Pedal Edema, Normal Capillary Refill Skin: Warm, Dry, Intact Neurological: No New Focal Deficit - Problem List Review Problem List Initiated/Reviewed/Updated: Yes - My Orders Last 24 Hours: My Active Orders 11/13/16 20:08 Accu Check [Blood Glucose Check, Bedside] [RC] Q1H 11/13/16 20:15 Insulin Regular, Human [NovoLIN R] 100 unit Sodium Chloride 0.9% [Normal Saline] 99 ml IV TITRATE 11/13/16 20:37 Intake and Output [RC] Q12H Oxygen Therapy [RC] PRN Vital Signs [RC] Q1H Ondansetron [Zofran] 4 mg IVPUSH Q4H PRN Sequential Compression Device [OM.PC] Per Unit Routine Resuscitation Status Routine 11/13/16 20:38 Antiembolic Devices [RC] Q12H 11/13/16 20:44 Consult to Diabetic Nurse Specialist [CONS] Routine 11/14/16 07:30 Phosphorus #1 [Neutra-Phos] 250 mg PO QID 11/14/16 09:00 BMP [BASIC METABOLIC PANEL,BMP] [CHEM] Q6H 11/14/16 15:00 BMP [BASIC METABOLIC PANEL,BMP] [CHEM] Q6H 11/15/16 05:11 CBC WITH AUTO DIFF [HEME] AM MAGNESIUM [CHEM] AM PHOSPHORUS [CHEM] AM 11/16/16 05:11 CBC WITH AUTO DIFF [HEME] AM MAGNESIUM [CHEM] AM PHOSPHORUS [CHEM] AM 11/17/16 05:11 CBC WITH AUTO DIFF [HEME] AM MAGNESIUM [CHEM] AM PHOSPHORUS [CHEM] AM 11/18/16 05:11 CBC WITH AUTO DIFF [HEME] AM MAGNESIUM [CHEM] AM PHOSPHORUS [CHEM] AM 11/19/16 05:11 CBC WITH AUTO DIFF [HEME] AM MAGNESIUM [CHEM] AM PHOSPHORUS [CHEM] AM 11/20/16 05:11 CBC WITH AUTO DIFF [HEME] AM MAGNESIUM [CHEM] AM PHOSPHORUS [CHEM] AM - Plan Plan:: 31 yo male admitted with DKA, dehydration, and likely acute kidney injury. DKA: bicarb improving, will continue IV fluids and insulin drip. Will trend anion gap ALLA: creatinine 1.5 hypophosphatemia: replacing
[2016-11-14 09:49] LABS: CHLORIDE,CL 114 mmol/L (98-110); SODIUM,NA 138 mmol/L (136-146)
[2016-11-14] MEDS: Ondansetron 4 MG/2 ML SDV IVPUSH PRN ×2 (11:04→15:08)
[2016-11-14] MEDS ORDERED: Docusate Sodium 100 MG Cap PO PRN (14:31)
[2016-11-14] MEDS: Bisacodyl 5 MG Tab PO PRN (14:57)
[2016-11-14] MEDS: Pantoprazole 40 MG Tab.CR PO SCH (14:57)
[2016-11-14 16:27] LABS: CHLORIDE,CL 110 mmol/L (98-110); SODIUM,NA 136 mmol/L (136-146)
[2016-11-14] MEDS ORDERED: Magnesium Sulfate/Water 2 GM in Premix Bag 1 BAG IV ONE (17:36)
[2016-11-14] MEDS ORDERED: Sodium Chloride 0.9% 1,000 ML IV SCH (17:45)
[2016-11-14 21:55] LABS: CHLORIDE,CL 111 mmol/L (98-110); SODIUM,NA 137 mmol/L (136-146)
[2016-11-14] MEDS: Sodium Chloride 0.9% with KCl 1,000 ML IV SCH (22:12)
[2016-11-15] MEDS: Phosphorus #1 250 MG Tab PO SCH ×5 (00:01→23:53)
[2016-11-15] MEDS ORDERED: Acetaminophen 500 MG Tab PO PRN (00:27)
[2016-11-15 02:28] LABS: CHLORIDE,CL 112 mmol/L (98-110); SODIUM,NA 138 mmol/L (136-146)
[2016-11-15] MEDS: Potassium Chloride 10% 20 MEQ/15 ML Soln 30 ML UD Cup PO ONE ×2 (03:22→03:25)
[2016-11-15] MEDS ORDERED: Potassium Chloride 20 MEQ Tab.ER PO ONE (03:25)
[2016-11-15] MEDS: Insulin Aspart 100 Units/ML 3 ML Pen SUBCUT SCH ×6 (03:54→23:52)
[2016-11-15] MEDS ORDERED: Insulin Aspart 100 Units/ML 3 ML Pen SUBCUT SCH (04:00)
[2016-11-15] MEDS: Sodium Chloride 0.9% with KCl 1,000 ML IV SCH (04:56)
[2016-11-15] MEDS: Pantoprazole 40 MG Tab.CR PO SCH (08:04)
[2016-11-15] MEDS: Ondansetron 4 MG/2 ML SDV IVPUSH PRN (08:05)
[2016-11-15 08:48] LABS: CHLORIDE,CL 111 mmol/L (98-110); SODIUM,NA 139 mmol/L (136-146)
[2016-11-15] MEDS: Insulin Glargine,Human Rec. Analog 100 Units/ML 3 ML Pen SUBCUT SCH ×2 (08:51→09:37)
--- NOTE | 2016-11-15 10:20 | PCM.PN ---
- Review of Systems Systems Review Comment:: nausea resolved. - Patient Data Vitals - Most Recent: Last Vital Signs Temp 36.9 C 11/15/16 08:00 Pulse 98 11/13/16 17:50 Resp 17 11/15/16 08:00 BP 117/97 H 11/15/16 08:00 Pulse Ox 96 11/15/16 08:00 Weight - Most Recent: 139.8 kg I&O - Last 24 Hours: Intake & Output 11/14/16 11/15/16 11/15/16 22:59 06:59 14:59 Intake Total 2350 1500 Output Total 1725 1475 Balance 625 25 Lab Results Last 24 Hours: Laboratory Results - last 24 hr 11/14/16 11/14/16 11/14/16 Range/Units 10:22 10:59 12:01 WBC (4.0-11.0) K/uL RBC (4.50-5.90) M/uL Hgb (13.0-17.0) g/dL Hct (38.0-50.0) % MCV (80.0-98.0) fL MCH (27.0-32.0) pg MCHC (31.0-37.0) g/dL RDW Std Deviation (28.0-62.0) fl RDW Coeff of Eduardo (11.0-15.0) % Plt Count (150-400) K/uL MPV (7.40-12.00) fL Neut % (Auto) (48.0-80.0) % Lymph % (Auto) (16.0-40.0) % [place] % (Auto) (0.0-15.0) % Eos % (Auto) (0.0-7.0) % Baso % (Auto) (0.0-1.5) % Neut # (Auto) (1.4-5.7) K/uL Lymph # (Auto) (0.6-2.4) K/uL [place] # (Auto) (0.0-0.8) K/uL Eos # (Auto) (0.0-0.7) K/uL Baso # (Auto) (0.0-0.1) K/uL Sodium (136-146) mmol/L Potassium (3.5-5.1) mmol/L Chloride (98-110) mmol/L Carbon Dioxide (21-31) mmol/L BUN (6.0-23.0) mg/dL Creatinine (0.6-1.5) mg/dL Est Cr Clr Drug Dosing Estimated GFR (MDRD) ml/min Glucose (60-110) mg/dL POC Glucose 293 H 328 H 310 H (60-110) mg/dL Calcium (8.8-10.8) mg/dL Phosphorus (2.4-4.7) mg/dL Magnesium (1.5-2.3) mEq/L Troponin I (0.0-0.29) NG/ML 11/14/16 11/14/16 11/14/16 Range/Units 12:30 13:04 14:07 WBC (4.0-11.0) K/uL RBC (4.50-5.90) M/uL Hgb (13.0-17.0) g/dL Hct (38.0-50.0) % MCV (80.0-98.0) fL MCH (27.0-32.0) pg MCHC (31.0-37.0) g/dL RDW Std Deviation (28.0-62.0) fl RDW Coeff of Eduardo (11.0-15.0) % Plt Count (150-400) K/uL MPV (7.40-12.00) fL Neut % (Auto) (48.0-80.0) % Lymph % (Auto) (16.0-40.0) % [place] % (Auto) (0.0-15.0) % Eos % (Auto) (0.0-7.0) % Baso % (Auto) (0.0-1.5) % Neut # (Auto) (1.4-5.7) K/uL Lymph # (Auto) (0.6-2.4) K/uL [place] # (Auto) (0.0-0.8) K/uL Eos # (Auto) (0.0-0.7) K/uL Baso # (Auto) (0.0-0.1) K/uL Sodium (136-146) mmol/L Potassium (3.5-5.1) mmol/L Chloride (98-110) mmol/L Carbon Dioxide (21-31) mmol/L BUN (6.0-23.0) mg/dL Creatinine (0.6-1.5) mg/dL Est Cr Clr Drug Dosing Estimated GFR (MDRD) ml/min Glucose (60-110) mg/dL POC Glucose 285 H 342 H (60-110) mg/dL Calcium (8.8-10.8) mg/dL Phosphorus (2.4-4.7) mg/dL Magnesium (1.5-2.3) mEq/L Troponin I < 0.10 (0.0-0.29) NG/ML 11/14/16 11/14/16 11/14/16 Range/Units 15:02 15:48 16:10 WBC (4.0-11.0) K/uL RBC (4.50-5.90) M/uL Hgb (13.0-17.0) g/dL Hct (38.0-50.0) % MCV (80.0-98.0) fL MCH (27.0-32.0) pg MCHC (31.0-37.0) g/dL RDW Std Deviation (28.0-62.0) fl RDW Coeff of Eduardo (11.0-15.0) % Plt Count (150-400) K/uL MPV (7.40-12.00) fL Neut % (Auto) (48.0-80.0) % Lymph % (Auto) (16.0-40.0) % [place] % (Auto) (0.0-15.0) % Eos % (Auto) (0.0-7.0) % Baso % (Auto) (0.0-1.5) % Neut # (Auto) (1.4-5.7) K/uL Lymph # (Auto) (0.6-2.4) K/uL [place] # (Auto) (0.0-0.8) K/uL Eos # (Auto) (0.0-0.7) K/uL Baso # (Auto) (0.0-0.1) K/uL Sodium 136 (136-146) mmol/L Potassium 3.8 (3.5-5.1) mmol/L Chloride 110 (98-110) mmol/L Carbon Dioxide 13 L (21-31) mmol/L BUN 12 (6.0-23.0) mg/dL Creatinine 1.4 (0.6-1.5) mg/dL Est Cr Clr Drug Dosing TNP Estimated GFR (MDRD) > 60.0 ml/min Glucose 384 H (60-110) mg/dL POC Glucose 315 H 303 H (60-110) mg/dL Calcium 9.2 (8.8-10.8) mg/dL Phosphorus (2.4-4.7) mg/dL Magnesium (1.5-2.3) mEq/L Troponin I (0.0-0.29) NG/ML 11/14/16 11/14/16 11/14/16 Range/Units 17:11 18:06 18:28 WBC (4.0-11.0) K/uL RBC (4.50-5.90) M/uL Hgb (13.0-17.0) g/dL Hct (38.0-50.0) % MCV (80.0-98.0) fL MCH (27.0-32.0) pg MCHC (31.0-37.0) g/dL RDW Std Deviation (28.0-62.0) fl RDW Coeff of Eduardo (11.0-15.0) % Plt Count (150-400) K/uL MPV (7.40-12.00) fL Neut % (Auto) (48.0-80.0) % Lymph % (Auto) (16.0-40.0) % [place] % (Auto) (0.0-15.0) % Eos % (Auto) (0.0-7.0) % Baso % (Auto) (0.0-1.5) % Neut # (Auto) (1.4-5.7) K/uL Lymph # (Auto) (0.6-2.4) K/uL [place] # (Auto) (0.0-0.8) K/uL Eos # (Auto) (0.0-0.7) K/uL Baso # (Auto) (0.0-0.1) K/uL Sodium (136-146) mmol/L Potassium (3.5-5.1) mmol/L Chloride (98-110) mmol/L Carbon Dioxide (21-31) mmol/L BUN (6.0-23.0) mg/dL Creatinine (0.6-1.5) mg/dL Est Cr Clr Drug Dosing Estimated GFR (MDRD) ml/min Glucose (60-110) mg/dL POC Glucose 342 H 316 H (60-110) mg/dL Calcium (8.8-10.8) mg/dL Phosphorus (2.4-4.7) mg/dL Magnesium (1.5-2.3) mEq/L Troponin I < 0.10 (0.0-0.29) NG/ML 11/14/16 11/14/16 11/14/16 Range/Units 19:01 20:03 21:24 WBC (4.0-11.0) K/uL RBC (4.50-5.90) M/uL Hgb (13.0-17.0) g/dL Hct (38.0-50.0) % MCV (80.0-98.0) fL MCH (27.0-32.0) pg MCHC (31.0-37.0) g/dL RDW Std Deviation (28.0-62.0) fl RDW Coeff of Eduardo (11.0-15.0) % Plt Count (150-400) K/uL MPV (7.40-12.00) fL Neut % (Auto) (48.0-80.0) % Lymph % (Auto) (16.0-40.0) % [place] % (Auto) (0.0-15.0) % Eos % (Auto) (0.0-7.0) % Baso % (Auto) (0.0-1.5) % Neut # (Auto) (1.4-5.7) K/uL Lymph # (Auto) (0.6-2.4) K/uL [place] # (Auto) (0.0-0.8) K/uL Eos # (Auto) (0.0-0.7) K/uL Baso # (Auto) (0.0-0.1) K/uL Sodium (136-146) mmol/L Potassium (3.5-5.1) mmol/L Chloride (98-110) mmol/L Carbon Dioxide (21-31) mmol/L BUN (6.0-23.0) mg/dL Creatinine (0.6-1.5) mg/dL Est Cr Clr Drug Dosing Estimated GFR (MDRD) ml/min Glucose (60-110) mg/dL POC Glucose 273 H 294 H 259 H (60-110) mg/dL Calcium (8.8-10.8) mg/dL Phosphorus (2.4-4.7) mg/dL Magnesium (1.5-2.3) mEq/L Troponin I (0.0-0.29) NG/ML 11/14/16 11/14/16 11/14/16 Range/Units 21:26 21:26 22:14 WBC (4.0-11.0) K/uL RBC (4.50-5.90) M/uL Hgb (13.0-17.0) g/dL Hct (38.0-50.0) % MCV (80.0-98.0) fL MCH (27.0-32.0) pg MCHC (31.0-37.0) g/dL RDW Std Deviation (28.0-62.0) fl RDW Coeff of Eduardo (11.0-15.0) % Plt Count (150-400) K/uL MPV (7.40-12.00) fL Neut % (Auto) (48.0-80.0) % Lymph % (Auto) (16.0-40.0) % [place] % (Auto) (0.0-15.0) % Eos % (Auto) (0.0-7.0) % Baso % (Auto) (0.0-1.5) % Neut # (Auto) (1.4-5.7) K/uL Lymph # (Auto) (0.6-2.4) K/uL [place] # (Auto) (0.0-0.8) K/uL Eos # (Auto) (0.0-0.7) K/uL Baso # (Auto) (0.0-0.1) K/uL Sodium 137 (136-146) mmol/L Potassium 3.1 L (3.5-5.1) mmol/L Chloride 111 H (98-110) mmol/L Carbon Dioxide 15 L (21-31) mmol/L BUN 11 (6.0-23.0) mg/dL Creatinine 1.2 (0.6-1.5) mg/dL Est Cr Clr Drug Dosing TNP Estimated GFR (MDRD) > 60.0 ml/min Glucose 258 H (60-110) mg/dL POC Glucose 224 H (60-110) mg/dL Calcium 8.7 L (8.8-10.8) mg/dL Phosphorus (2.4-4.7) mg/dL Magnesium (1.5-2.3) mEq/L Troponin I < 0.10 (0.0-0.29) NG/ML 11/14/16 11/15/16 11/15/16 Range/Units 23:00 00:01 01:05 WBC (4.0-11.0) K/uL RBC (4.50-5.90) M/uL Hgb (13.0-17.0) g/dL Hct (38.0-50.0) % MCV (80.0-98.0) fL MCH (27.0-32.0) pg MCHC (31.0-37.0) g/dL RDW Std Deviation (28.0-62.0) fl RDW Coeff of Eduardo (11.0-15.0) % Plt Count (150-400) K/uL MPV (7.40-12.00) fL Neut % (Auto) (48.0-80.0) % Lymph % (Auto) (16.0-40.0) % [place] % (Auto) (0.0-15.0) % Eos % (Auto) (0.0-7.0) % Baso % (Auto) (0.0-1.5) % Neut # (Auto) (1.4-5.7) K/uL Lymph # (Auto) (0.6-2.4) K/uL [place] # (Auto) (0.0-0.8) K/uL Eos # (Auto) (0.0-0.7) K/uL Baso # (Auto) (0.0-0.1) K/uL Sodium (136-146) mmol/L Potassium (3.5-5.1) mmol/L Chloride (98-110) mmol/L Carbon Dioxide (21-31) mmol/L BUN (6.0-23.0) mg/dL Creatinine (0.6-1.5) mg/dL Est Cr Clr Drug Dosing Estimated GFR (MDRD) ml/min Glucose (60-110) mg/dL POC Glucose 201 H 208 H 175 H (60-110) mg/dL Calcium (8.8-10.8) mg/dL Phosphorus (2.4-4.7) mg/dL Magnesium (1.5-2.3) mEq/L Troponin I (0.0-0.29) NG/ML 11/15/16 11/15/16 11/15/16 Range/Units 01:52 01:52 01:52 WBC 6.91 (4.0-11.0) K/uL RBC 4.88 (4.50-5.90) M/uL Hgb 12.8 L (13.0-17.0) g/dL Hct 37.6 L (38.0-50.0) % MCV 77.0 L (80.0-98.0) fL MCH 26.2 L (27.0-32.0) pg MCHC 34.0 (31.0-37.0) g/dL RDW Std Deviation 43.8 (28.0-62.0) fl RDW Coeff of Eduardo 16 H (11.0-15.0) % Plt Count 166 (150-400) K/uL MPV 12.10 H (7.40-12.00) fL Neut % (Auto) 59.2 (48.0-80.0) % Lymph % (Auto) 28.1 (16.0-40.0) % [place] % (Auto) 10.9 (0.0-15.0) % Eos % (Auto) 1.7 (0.0-7.0) % Baso % (Auto) 0.1 (0.0-1.5) % Neut # (Auto) 4.1 (1.4-5.7) K/uL Lymph # (Auto) 1.9 (0.6-2.4) K/uL [place] # (Auto) 0.8 (0.0-0.8) K/uL Eos # (Auto) 0.1 (0.0-0.7) K/uL Baso # (Auto) 0.0 (0.0-0.1) K/uL Sodium 138 (136-146) mmol/L Potassium 2.9 L (3.5-5.1) mmol/L Chloride 112 H (98-110) mmol/L Carbon Dioxide 14 L (21-31) mmol/L BUN 11 (6.0-23.0) mg/dL Creatinine 1.1 (0.6-1.5) mg/dL Est Cr Clr Drug Dosing TNP Estimated GFR (MDRD) > 60.0 ml/min Glucose 188 H (60-110) mg/dL POC Glucose (60-110) mg/dL Calcium 8.7 L (8.8-10.8) mg/dL Phosphorus 2.0 L (2.4-4.7) mg/dL Magnesium 1.6 (1.5-2.3) mEq/L Troponin I (0.0-0.29) NG/ML 11/15/16 11/15/16 11/15/16 Range/Units 02:01 03:05 03:52 WBC (4.0-11.0) K/uL RBC (4.50-5.90) M/uL Hgb (13.0-17.0) g/dL Hct (38.0-50.0) % MCV (80.0-98.0) fL MCH (27.0-32.0) pg MCHC (31.0-37.0) g/dL RDW Std Deviation (28.0-62.0) fl RDW Coeff of Eduardo (11.0-15.0) % Plt Count (150-400) K/uL MPV (7.40-12.00) fL Neut % (Auto) (48.0-80.0) % Lymph % (Auto) (16.0-40.0) % [place] % (Auto) (0.0-15.0) % Eos % (Auto) (0.0-7.0) % Baso % (Auto) (0.0-1.5) % Neut # (Auto) (1.4-5.7) K/uL Lymph # (Auto) (0.6-2.4) K/uL [place] # (Auto) (0.0-0.8) K/uL Eos # (Auto) (0.0-0.7) K/uL Baso # (Auto) (0.0-0.1) K/uL Sodium (136-146) mmol/L Potassium (3.5-5.1) mmol/L Chloride (98-110) mmol/L Carbon Dioxide (21-31) mmol/L BUN (6.0-23.0) mg/dL Creatinine (0.6-1.5) mg/dL Est Cr Clr Drug Dosing Estimated GFR (MDRD) ml/min Glucose (60-110) mg/dL POC Glucose 163 H 174 H 165 H (60-110) mg/dL Calcium (8.8-10.8) mg/dL Phosphorus (2.4-4.7) mg/dL Magnesium (1.5-2.3) mEq/L Troponin I (0.0-0.29) NG/ML 11/15/16 11/15/16 11/15/16 Range/Units 06:01 08:11 08:11 WBC (4.0-11.0) K/uL RBC (4.50-5.90) M/uL Hgb (13.0-17.0) g/dL Hct (38.0-50.0) % MCV (80.0-98.0) fL MCH (27.0-32.0) pg MCHC (31.0-37.0) g/dL RDW Std Deviation (28.0-62.0) fl RDW Coeff of Eduardo (11.0-15.0) % Plt Count (150-400) K/uL MPV (7.40-12.00) fL Neut % (Auto) (48.0-80.0) % Lymph % (Auto) (16.0-40.0) % [place] % (Auto) (0.0-15.0) % Eos % (Auto) (0.0-7.0) % Baso % (Auto) (0.0-1.5) % Neut # (Auto) (1.4-5.7) K/uL Lymph # (Auto) (0.6-2.4) K/uL [place] # (Auto) (0.0-0.8) K/uL Eos # (Auto) (0.0-0.7) K/uL Baso # (Auto) (0.0-0.1) K/uL Sodium 139 (136-146) mmol/L Potassium 3.4 L (3.5-5.1) mmol/L Chloride 111 H (98-110) mmol/L Carbon Dioxide 15 L (21-31) mmol/L BUN 12 (6.0-23.0) mg/dL Creatinine 1.1 (0.6-1.5) mg/dL Est Cr Clr Drug Dosing 111.10 Estimated GFR (MDRD) > 60.0 ml/min Glucose 256 H (60-110) mg/dL POC Glucose 186 H 232 H (60-110) mg/dL Calcium 8.5 L (8.8-10.8) mg/dL Phosphorus (2.4-4.7) mg/dL Magnesium (1.5-2.3) mEq/L Troponin I (0.0-0.29) NG/ML Med Orders - Current: Current Medications Acetaminophen (Tylenol Extra Strength) 500 mg PO Q6H PRN PRN Reason: Pain Last Admin: 11/15/16 00:38 Dose: 500 mg Bisacodyl (Dulcolax) 10 mg PO DAILY PRN PRN Reason: Constipation Last Admin: 11/14/16 14:57 Dose: 10 mg Docusate Sodium (Colace) 100 mg PO DAILY PRN PRN Reason: Constipation Last Admin: 11/15/16 08:04 Dose: 100 mg Sodium Chloride (Normal Saline) 1,000 mls @ 200 mls/hr IV ASDIRECTED [facility] Last Admin: 11/14/16 18:03 Dose: 200 mls/hr Potassium Chloride/Sodium Chloride (Normal Saline With 40 Meq Kcl) 1,000 mls @ 150 mls/hr IV ASDIRECTED [facility] Last Admin: 11/15/16 04:56 Dose: 150 mls/hr Insulin Aspart (Novolog) 0 unit SUBCUT Q4H [facility] PRN Reason: Protocol Last Admin: 11/15/16 08:18 Dose: 2 unit Insulin Glargine (Lantus Solostar) 35 units SUBCUT DAILY [facility] Last Admin: 11/15/16 09:37 Dose: Not Given Ondansetron HCl (Zofran) 4 mg IVPUSH Q4H PRN PRN Reason: Nausea Last Admin: 11/15/16 08:05 Dose: 4 mg Pantoprazole Sodium (Protonix) 40 mg PO DAILY [facility] Last Admin: 11/15/16 08:04 Dose: 40 mg Sodium Phosphate (Neutra-Phos) 250 mg PO QID [facility] Last Admin: 11/15/16 05:49 Dose: 250 mg Discontinued Medications Sodium Chloride (Normal Saline) 1,000 mls @ 999 mls/hr IV STAT ONE Stop: 11/13/16 16:08 Last Admin: 11/13/16 15:17 Dose: 999 mls/hr Sodium Chloride (Normal Saline) 1,000 mls @ 999 mls/hr IV STAT ONE Stop: 11/13/16 17:02 Last Admin: 11/13/16 16:29 Dose: 999 mls/hr Sodium Chloride (Normal Saline) 1,000 mls @ 999 mls/hr IV .Bolus ONE Stop: 11/13/16 18:01 Last Admin: 11/13/16 17:05 Dose: 999 mls/hr Insulin Human Regular 100 unit (/ Sodium Chloride) 100 mls @ 0 mls/hr IV TITRATE [facility]; 0.1 UNIT/KG/HR PRN Reason: Protocol Last Admin: 11/13/16 17:47 Dose: 0.1 unit/kg/hr, 13.4 mls/hr Sodium Chloride (Normal Saline) 1,000 mls @ 300 mls/hr IV .Bolus ONE Stop: 11/13/16 20:58 Last Admin: 11/13/16 17:48 Dose: 300 mls/hr Insulin Human Regular 100 unit (/ Sodium Chloride) 100 mls @ 8 mls/hr IV TITRATE AURY; 8 UNIT/HR PRN Reason: Protocol Last Titration: 11/15/16 01:10 Dose: 2 unit/hr, 2 mls/hr Sodium Chloride (Normal Saline) 1,000 mls @ 200 mls/hr IV ASDIRECTED [facility] Dextrose/Sodium Chloride (Dextrose 5%-Normal Saline) 1,000 mls @ 200 mls/hr IV ASDIRECTED [facility] Last Admin: 11/13/16 21:23 Dose: 200 mls/hr Dextrose/Water (Dextrose 5% In Water) 1,000 mls @ 250 mls/hr IV ASDIRECTED [facility] Last Admin: 11/14/16 16:12 Dose: 250 mls/hr Potassium Phosphate 40 mmole/ (Dextrose/Water) 1,013.3333 mls @ 250 mls/hr IV ONETIME ONE Stop: 11/14/16 04:33 Last Admin: 11/14/16 00:26 Dose: 250 mls/hr Magnesium Sulfate 2 gm/ Premix 50 mls @ 50 mls/hr IV ONETIME ONE Stop: 11/14/16 18:35 Last Admin: 11/14/16 18:03 Dose: 50 mls/hr Insulin Aspart (Novolog) 0 unit SUBCUT Q4H [facility] PRN Reason: Protocol Insulin Human Regular (Novolin R) 5 unit IVPUSH ONETIME ONE PRN Reason: Protocol Stop: 11/13/16 15:09 Last Admin: 11/13/16 15:27 Dose: 5 unit Insulin Human Regular (Novolin R) 5 unit IVPUSH ONETIME ONE PRN Reason: Protocol Stop: 11/13/16 16:23 Last Admin: 11/13/16 16:29 Dose: 5 units Ondansetron HCl (Zofran) 8 mg IVPUSH ONETIME ONE Stop: 11/13/16 15:09 Last Admin: 11/13/16 15:23 Dose: 8 mg Potassium Chloride (Potassium Chloride) 40 meq PO ONETIME ONE Stop: 11/15/16 03:10 Last Admin: 11/15/16 03:25 Dose: Not Given Potassium Chloride (Klor-Con M20) 40 meq PO ONETIME ONE Stop: 11/15/16 03:26 Last Admin: 11/15/16 03:40 Dose: 40 meq Potassium Phosphate (Potassium Phosphates) 40 mmole IV ONETIME ONE Stop: 11/13/16 22:50 Last Admin: 11/14/16 00:19 Dose: Not Given Sodium Bicarbonate (Sodium Bicarbonate 4.2%) 5 meq IVPUSH NOW STA Stop: 11/13/16 17:03 Last Admin: 11/13/16 17:59 Dose: Not Given Sodium Bicarbonate (Sodium Bicarbonate 8.4%) 50 meq IVPUSH ONETIME ONE Stop: 11/13/16 17:45 Last Admin: 11/13/16 17:51 Dose: 50 meq - Exam General: Alert, Oriented HEENT: Mucous Membr. Moist/[place] Lungs: Clear to Auscultation, Normal Respiratory Effort Cardiovascular: Regular Rate, Regular Rhythm GI/Abdominal Exam: Soft, Non-Tender, No Distention Extremities: No Pedal Edema Skin: Warm, Dry, Intact Neurological: No New Focal Deficit - Problem List Review Problem List Initiated/Reviewed/Updated: Yes - My Orders Last 24 Hours: My Active Orders 11/14/16 14:31 Bisacodyl [Dulcolax] 10 mg PO DAILY PRN Docusate Sodium [Colace] 100 mg PO DAILY PRN 11/14/16 14:45 Pantoprazole [ProTONIX] 40 mg PO DAILY 11/15/16 10:12 Transfer Patient (Change bed) [ADT] Routine 11/15/16 18:00 BASIC METABOLIC PANEL,BMP [CHEM] Routine 11/16/16 05:11 CBC WITH AUTO DIFF [HEME] AM MAGNESIUM [CHEM] AM PHOSPHORUS [CHEM] AM 11/17/16 05:11 CBC WITH AUTO DIFF [HEME] AM MAGNESIUM [CHEM] AM PHOSPHORUS [CHEM] AM 11/18/16 05:11 CBC WITH AUTO DIFF [HEME] AM MAGNESIUM [CHEM] AM PHOSPHORUS [CHEM] AM 11/19/16 05:11 CBC WITH AUTO DIFF [HEME] AM MAGNESIUM [CHEM] AM PHOSPHORUS [CHEM] AM 11/20/16 05:11 CBC WITH AUTO DIFF [HEME] AM MAGNESIUM [CHEM] AM PHOSPHORUS [CHEM] AM - Plan Plan:: 31 yo male admitted with DKA, dehydration, and likely acute kidney injury. DKA: anion gap resolving will switch to subcu insulin. ALLA: resolving creatinine 1.1
[2016-11-15] MEDS: Bisacodyl 5 MG Tab PO PRN (13:00)
[2016-11-15] MEDS ORDERED: Magnesium Hydroxide 400 MG/5 ML Susp 30 ML Cup PO ONE (16:00)
[2016-11-15 18:41] LABS: CHLORIDE,CL 108 mmol/L (98-110); SODIUM,NA 136 mmol/L (136-146)
[2016-11-16] MEDS: Insulin Aspart 100 Units/ML 3 ML Pen SUBCUT SCH ×3 (03:43→12:00)
[2016-11-16] MEDS: Phosphorus #1 250 MG Tab PO SCH ×2 (05:00→11:59)
[2016-11-16] MEDS: Pantoprazole 40 MG Tab.CR PO SCH (08:01)
[2016-11-16] MEDS: Insulin Glargine,Human Rec. Analog 100 Units/ML 3 ML Pen SUBCUT SCH (09:15)
[2016-11-16] MEDS ORDERED: Magnesium Sulfate/Water 2 GM in Premix Bag 1 BAG IV ONE (10:39)
[2016-11-16 11:16] LABS: CHLORIDE,CL 103 mmol/L (98-110); SODIUM,NA 137 mmol/L (136-146)
[2016-11-16] MEDS ORDERED: Potassium Chloride 20 MEQ Tab.ER PO ONE (11:35)
[2016-11-16 12:38] VITALS: BP 120/78
--- NOTE | 2016-11-16 13:04 | PCM.DCSUM1 ---
Discharge Summary - Discharge Data Discharge Date: 11/16/16 Discharge Disposition: Home, Self-Care 01 Condition: Good - Patient Summary/Data Consults: Consultations 11/13/16 20:44 Consult to Diabetic Nurse Specialist [CONS] Routine 11/15/16 08:30 Consult to Community Center Worker [CONS] Routine Hospital Course: Admission diagnosis Newly diagnosed Diabetes Diabetic ketoacidosis Hospital Course: 31 yo male who presents with a one day history of nausea and vomiting. He has a several month history of increased thirst and urination. 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 He saw Dr. Sunshine the day before admission and was informed to come to the ED when he was noted to have blood sugar above 400 and HgA1c of 14.6. In the ED he was noted to be in DKA wtih pH of 7.102 and bicarb of 7. He was admitted to the ICU and resuscitated with IV fluids and insulin drip. His anion gap closed and he was switched to subcutaneous insulin. outreach educator was consulted and he was instructed on diabetic diet, hypoglycemia, and insulin use. He is discharged today and will have follow up with Dr. Sunshine. - Patient Instructions Diet: Diabetic Diet Activity: As Tolerated - Discharge Plan Prescriptions/Med Rec: Insulin Aspart [NovoLOG] 0 unit SUBCUT TIDAC #1 pen Insulin Degludec [Tresiba Flextouch U-100] 35 unit SQ DAILY #1 pen Potassium Chloride 20 meq PO DAILY #3 tablet.er Home Medications: Home Meds Insulin Aspart [NovoLOG] 0 unit SUBCUT TIDAC #1 pen 11/16/16 [Rx] Insulin Degludec [Tresiba Flextouch U-100] 35 unit SQ DAILY #1 pen 11/16/16 [Rx] Potassium Chloride 20 meq PO DAILY #3 tablet.er 11/16/16 [Rx] Patient Handouts: Insulin Treatment for Diabetes, Insulin Aspart injection, Potassium Salts tablets, extended-release tablets or capsules, Diabetic Ketoacidosis, Type 1 Diabetes Mellitus, Adult, Insulin Degludec injection, How and Where to Give Subcutaneous Insulin Injections, Adult Referrals: Harry Sunshine MD [Resident] - 11/25/16 11:30 am - Patient Data Vitals - Most Recent: Last Vital Signs Temp 37.1 C 11/16/16 12:00 Pulse 82 11/16/16 12:00 Resp 20 11/16/16 12:00 BP 120/78 11/16/16 12:00 Pulse Ox 98 11/16/16 12:00 Weight - Most Recent: 138.935 kg I&O - Last 24 hours: Intake & Output 11/15/16 11/16/16 11/16/16 22:59 06:59 14:59 Intake Total 500 1250 Output Total 0 1750 Balance 500 -500 Lab Results - Last 24 hrs: Laboratory Results - last 24 hr 11/15/16 11/15/16 11/15/16 Range/Units 15:51 18:25 19:51 WBC (4.0-11.0) K/uL RBC (4.50-5.90) M/uL Hgb (13.0-17.0) g/dL Hct (38.0-50.0) % MCV (80.0-98.0) fL MCH (27.0-32.0) pg MCHC (31.0-37.0) g/dL RDW Std Deviation (28.0-62.0) fl RDW Coeff of Eduardo (11.0-15.0) % Plt Count (150-400) K/uL MPV (7.40-12.00) fL Neut % (Auto) (48.0-80.0) % Lymph % (Auto) (16.0-40.0) % [place] % (Auto) (0.0-15.0) % Eos % (Auto) (0.0-7.0) % Baso % (Auto) (0.0-1.5) % Neut # (Auto) (1.4-5.7) K/uL Lymph # (Auto) (0.6-2.4) K/uL [place] # (Auto) (0.0-0.8) K/uL Eos # (Auto) (0.0-0.7) K/uL Baso # (Auto) (0.0-0.1) K/uL Nucleated RBC % /100WBC Nucleated RBCs # K/uL Sodium 136 (136-146) mmol/L Potassium 4.0 (3.5-5.1) mmol/L Chloride 108 (98-110) mmol/L Carbon Dioxide 12 L (21-31) mmol/L BUN 13 (6.0-23.0) mg/dL Creatinine 1.1 (0.6-1.5) mg/dL Est Cr Clr Drug Dosing 111.10 mL/min Estimated GFR (MDRD) > 60.0 ml/min Glucose 452 H (60-110) mg/dL POC Glucose 338 H 332 H (60-110) mg/dL Calcium 8.8 (8.8-10.8) mg/dL Phosphorus (2.4-4.7) mg/dL Magnesium (1.5-2.3) mEq/L 11/15/16 11/16/16 11/16/16 Range/Units 23:45 03:41 04:38 WBC 5.44 (4.0-11.0) K/uL RBC 4.42 L (4.50-5.90) M/uL Hgb 11.5 L (13.0-17.0) g/dL Hct 34.1 L (38.0-50.0) % MCV 77.1 L (80.0-98.0) fL MCH 26.0 L (27.0-32.0) pg MCHC 33.7 (31.0-37.0) g/dL RDW Std Deviation 43.6 (28.0-62.0) fl RDW Coeff of Eduardo 16 H (11.0-15.0) % Plt Count 146 L (150-400) K/uL MPV 11.30 (7.40-12.00) fL Neut % (Auto) 46.3 L (48.0-80.0) % Lymph % (Auto) 41.9 H (16.0-40.0) % [place] % (Auto) 9.6 (0.0-15.0) % Eos % (Auto) 1.8 (0.0-7.0) % Baso % (Auto) 0.4 (0.0-1.5) % Neut # (Auto) 2.5 (1.4-5.7) K/uL Lymph # (Auto) 2.3 (0.6-2.4) K/uL [place] # (Auto) 0.5 (0.0-0.8) K/uL Eos # (Auto) 0.1 (0.0-0.7) K/uL Baso # (Auto) 0.0 (0.0-0.1) K/uL Nucleated RBC % 0.0 /100WBC Nucleated RBCs # 0 K/uL Sodium (136-146) mmol/L Potassium (3.5-5.1) mmol/L Chloride (98-110) mmol/L Carbon Dioxide (21-31) mmol/L BUN (6.0-23.0) mg/dL Creatinine (0.6-1.5) mg/dL Est Cr Clr Drug Dosing mL/min Estimated GFR (MDRD) ml/min Glucose (60-110) mg/dL POC Glucose 305 H 276 H (60-110) mg/dL Calcium (8.8-10.8) mg/dL Phosphorus (2.4-4.7) mg/dL Magnesium (1.5-2.3) mEq/L 11/16/16 11/16/16 11/16/16 Range/Units 04:38 07:54 10:51 WBC (4.0-11.0) K/uL RBC (4.50-5.90) M/uL Hgb (13.0-17.0) g/dL Hct (38.0-50.0) % MCV (80.0-98.0) fL MCH (27.0-32.0) pg MCHC (31.0-37.0) g/dL RDW Std Deviation (28.0-62.0) fl RDW Coeff of Eduardo (11.0-15.0) % Plt Count (150-400) K/uL MPV (7.40-12.00) fL Neut % (Auto) (48.0-80.0) % Lymph % (Auto) (16.0-40.0) % [place] % (Auto) (0.0-15.0) % Eos % (Auto) (0.0-7.0) % Baso % (Auto) (0.0-1.5) % Neut # (Auto) (1.4-5.7) K/uL Lymph # (Auto) (0.6-2.4) K/uL [place] # (Auto) (0.0-0.8) K/uL Eos # (Auto) (0.0-0.7) K/uL Baso # (Auto) (0.0-0.1) K/uL Nucleated RBC % /100WBC Nucleated RBCs # K/uL Sodium 137 (136-146) mmol/L Potassium 3.0 L (3.5-5.1) mmol/L Chloride 103 (98-110) mmol/L Carbon Dioxide 21 (21-31) mmol/L BUN 10 (6.0-23.0) mg/dL Creatinine 0.9 (0.6-1.5) mg/dL Est Cr Clr Drug Dosing 135.79 mL/min Estimated GFR (MDRD) > 60.0 ml/min Glucose 357 H (60-110) mg/dL POC Glucose 268 H (60-110) mg/dL Calcium 8.2 L (8.8-10.8) mg/dL Phosphorus 3.0 (2.4-4.7) mg/dL Magnesium 1.4 L (1.5-2.3) mEq/L 11/16/16 Range/Units 11:34 WBC (4.0-11.0) K/uL RBC (4.50-5.90) M/uL Hgb (13.0-17.0) g/dL Hct (38.0-50.0) % MCV (80.0-98.0) fL MCH (27.0-32.0) pg MCHC (31.0-37.0) g/dL RDW Std Deviation (28.0-62.0) fl RDW Coeff of Eduardo (11.0-15.0) % Plt Count (150-400) K/uL MPV (7.40-12.00) fL Neut % (Auto) (48.0-80.0) % Lymph % (Auto) (16.0-40.0) % [place] % (Auto) (0.0-15.0) % Eos % (Auto) (0.0-7.0) % Baso % (Auto) (0.0-1.5) % Neut # (Auto) (1.4-5.7) K/uL Lymph # (Auto) (0.6-2.4) K/uL [place] # (Auto) (0.0-0.8) K/uL Eos # (Auto) (0.0-0.7) K/uL Baso # (Auto) (0.0-0.1) K/uL Nucleated RBC % /100WBC Nucleated RBCs # K/uL Sodium (136-146) mmol/L Potassium (3.5-5.1) mmol/L Chloride (98-110) mmol/L Carbon Dioxide (21-31) mmol/L BUN (6.0-23.0) mg/dL Creatinine (0.6-1.5) mg/dL Est Cr Clr Drug Dosing mL/min Estimated GFR (MDRD) ml/min Glucose (60-110) mg/dL POC Glucose 257 H (60-110) mg/dL Calcium (8.8-10.8) mg/dL Phosphorus (2.4-4.7) mg/dL Magnesium (1.5-2.3) mEq/L Med Orders - Current: Current Medications Acetaminophen (Tylenol Extra Strength) 500 mg PO Q6H PRN PRN Reason: Pain Last Admin: 11/15/16 00:38 Dose: 500 mg Bisacodyl (Dulcolax) 10 mg PO DAILY PRN PRN Reason: Constipation Last Admin: 11/15/16 13:00 Dose: 10 mg Docusate Sodium (Colace) 100 mg PO DAILY PRN PRN Reason: Constipation Last Admin: 11/15/16 08:04 Dose: 100 mg Insulin Aspart (Novolog) 0 unit SUBCUT Q4H AURY PRN Reason: Protocol Last Admin: 11/16/16 12:00 Dose: 3 unit Insulin Glargine (Lantus Solostar) 35 units SUBCUT DAILY [facility] Last Admin: 11/16/16 09:15 Dose: 35 units Ondansetron HCl (Zofran) 4 mg IVPUSH Q4H PRN PRN Reason: Nausea Last Admin: 11/15/16 08:05 Dose: 4 mg Pantoprazole Sodium (Protonix) 40 mg PO DAILY [facility] Last Admin: 11/16/16 08:01 Dose: 40 mg Sodium Phosphate (Neutra-Phos) 250 mg PO QID [facility] Last Admin: 11/16/16 11:59 Dose: 250 mg Discontinued Medications Sodium Chloride (Normal Saline) 1,000 mls @ 999 mls/hr IV STAT ONE Stop: 11/13/16 16:08 Last Admin: 11/13/16 15:17 Dose: 999 mls/hr Sodium Chloride (Normal Saline) 1,000 mls @ 999 mls/hr IV STAT ONE Stop: 11/13/16 17:02 Last Admin: 11/13/16 16:29 Dose: 999 mls/hr Sodium Chloride (Normal Saline) 1,000 mls @ 999 mls/hr IV .Bolus ONE Stop: 11/13/16 18:01 Last Admin: 11/13/16 17:05 Dose: 999 mls/hr Insulin Human Regular 100 unit (/ Sodium Chloride) 100 mls @ 0 mls/hr IV TITRATE AURY; 0.1 UNIT/KG/HR PRN Reason: Protocol Last Admin: 11/13/16 17:47 Dose: 0.1 unit/kg/hr, 13.4 mls/hr Sodium Chloride (Normal Saline) 1,000 mls @ 300 mls/hr IV .Bolus ONE Stop: 11/13/16 20:58 Last Admin: 11/13/16 17:48 Dose: 300 mls/hr Insulin Human Regular 100 unit (/ Sodium Chloride) 100 mls @ 8 mls/hr IV TITRATE AURY; 8 UNIT/HR PRN Reason: Protocol Last Titration: 11/15/16 01:10 Dose: 2 unit/hr, 2 mls/hr Sodium Chloride (Normal Saline) 1,000 mls @ 200 mls/hr IV ASDIRECTED AURY Dextrose/Sodium Chloride (Dextrose 5%-Normal Saline) 1,000 mls @ 200 mls/hr IV ASDIRECTED AURY Last Admin: 11/13/16 21:23 Dose: 200 mls/hr Dextrose/Water (Dextrose 5% In Water) 1,000 mls @ 250 mls/hr IV ASDIRECTED AURY Last Admin: 11/14/16 16:12 Dose: 250 mls/hr Potassium Phosphate 40 mmole/ (Dextrose/Water) 1,013.3333 mls @ 250 mls/hr IV ONETIME ONE Stop: 11/14/16 04:33 Last Admin: 11/14/16 00:26 Dose: 250 mls/hr Magnesium Sulfate 2 gm/ Premix 50 mls @ 50 mls/hr IV ONETIME ONE Stop: 11/14/16 18:35 Last Admin: 11/14/16 18:03 Dose: 50 mls/hr Sodium Chloride (Normal Saline) 1,000 mls @ 200 mls/hr IV ASDIRECTED AURY Last Admin: 11/14/16 18:03 Dose: 200 mls/hr Potassium Chloride/Sodium Chloride (Normal Saline With 40 Meq Kcl) 1,000 mls @ 150 mls/hr IV ASDIRECTED [facility] Last Admin: 11/15/16 04:56 Dose: 150 mls/hr Magnesium Sulfate 2 gm/ Premix 50 mls @ 50 mls/hr IV ONETIME ONE Stop: 11/16/16 11:38 Last Admin: 11/16/16 11:58 Dose: 50 mls/hr Insulin Aspart (Novolog) 0 unit SUBCUT Q4H [facility] PRN Reason: Protocol Insulin Human Regular (Novolin R) 5 unit IVPUSH ONETIME ONE PRN Reason: Protocol Stop: 11/13/16 15:09 Last Admin: 11/13/16 15:27 Dose: 5 unit Insulin Human Regular (Novolin R) 5 unit IVPUSH ONETIME ONE PRN Reason: Protocol Stop: 11/13/16 16:23 Last Admin: 11/13/16 16:29 Dose: 5 units Magnesium Hydroxide (Milk Of Magnesia) 30 ml PO ONETIME ONE Stop: 11/15/16 16:01 Last Admin: 11/15/16 15:53 Dose: 30 ml Ondansetron HCl (Zofran) 8 mg IVPUSH ONETIME ONE Stop: 11/13/16 15:09 Last Admin: 11/13/16 15:23 Dose: 8 mg Potassium Chloride (Potassium Chloride) 40 meq PO ONETIME ONE Stop: 11/15/16 03:10 Last Admin: 11/15/16 03:25 Dose: Not Given Potassium Chloride (Klor-Con M20) 40 meq PO ONETIME ONE Stop: 11/15/16 03:26 Last Admin: 11/15/16 03:40 Dose: 40 meq Potassium Chloride (Klor-Con M20) 40 meq PO ONETIME ONE Stop: 11/16/16 11:36 Last Admin: 11/16/16 11:59 Dose: 40 meq Potassium Phosphate (Potassium Phosphates) 40 mmole IV ONETIME ONE Stop: 11/13/16 22:50 Last Admin: 11/14/16 00:19 Dose: Not Given Sodium Bicarbonate (Sodium Bicarbonate 4.2%) 5 meq IVPUSH NOW STA Stop: 11/13/16 17:03 Last Admin: 11/13/16 17:59 Dose: Not Given Sodium Bicarbonate (Sodium Bicarbonate 8.4%) 50 meq IVPUSH ONETIME ONE Stop: 11/13/16 17:45 Last Admin: 11/13/16 17:51 Dose: 50 meq *Q Meaningful Use (DIS) - VTE *Q VTE Criteria *Q: - Stroke *Q Stroke Criteria *Q: - AMI *Q AMI Criteria *Q:
== END 2016-11-16 14:05 | disposition home or self-care (01) | DRG 638 ==
LOC: MW.ED 14:51 → MW.ICU 17:18 → MW.MS 11-14 17:09 → MW.ICU 11-14 17:09 → MW.MS 11-15 14:11
PROVIDERS: ADMIT Internal Medicine; ATTEND Internal Medicine
DX: E13.10 Other specified diabetes mellitus with ketoacidosis without coma (principal); N17.9 Acute kidney failure, unspecified; E86.0 Dehydration; E83.39 Other disorders of phosphorus metabolism; Z79.4 Long term (current) use of insulin
CPT/HCPCS: 36415; 36600; 71010; 71010-26; 80048; 80053; 81001; 82150; 82550; 82553; 82803; 82962; 83605; 83690; 83735; 84100; 84484; 85025; 93005; 96361; 96365; 96375; 96376; 99285-25; 99291; A9270-GY; J1815-GY ×2; J2405; J3475; J3480; J7030; J7040; J7042; J7060

== ENCOUNTER 2017-05-13 11:25 | Emergency (ER) | payer SELFPAY ==
--- NOTE | 2017-05-13 12:41 | EDM.PDOC ---
ED HPI GENERAL MEDICAL PROBLEM - General Chief Complaint: Gastrointestinal Problem Stated Complaint: bloody stool Time Seen by Provider: 05/13/17 12:41 Source of Information: Reports: Patient - History of Present Illness INITIAL COMMENTS - FREE TEXT/NARRATIVE: HISTORY AND PHYSICAL: History of present illness: [Patient presents with bright red blood per rectum which began after bowel movement he has been having a problem for a couple of days he is been slightly on the constipated side no fever nausea vomiting chills sweats no chest pain shortness breath headache dizziness or palpitation no urine symptoms ] Review of systems: As per history of present illness and below otherwise all systems reviewed and negative. Past medical history: As per history of present illness and as reviewed below otherwise noncontributory. Surgical history: As per history of present illness and as reviewed below otherwise noncontributory. Social history: No reported history of drug or alcohol abuse. Family history: As per history of present illness and as reviewed below otherwise noncontributory. Physical exam: HEENT: Atraumatic, normocephalic, pupils reactive, negative for conjunctival pallor or scleral icterus, mucous membranes moist, throat clear, neck supple, nontender, trachea midline. Lungs: Clear to auscultation, breath sounds equal bilaterally, chest nontender. Heart: S1S2, regular, negative for clicks, rubs, or JVD. Abdomen: Soft, nondistended, nontender. Negative for masses or hepatosplenomegaly. Negative for costovertebral tenderness. Pelvis: Stable nontender. Genitourinary: Deferred. Rectal: 2.5 cm nonthrombosed external hemorrhoid guaiac positive, likely in paternal hemorrhoids exist limited exam due to pain Extremities: Atraumatic, negative for cords or calf pain. Neurovascular unremarkable. Neuro: Awake, alert, oriented. Cranial nerves II through XII unremarkable. Cerebellum unremarkable. Motor and sensory unremarkable throughout. Exam nonfocal. Diagnostics: [Clinical] Therapeutics: [[id number] symptomatic therapies cortisone/suppositories Stool softeners Sitz bath Follow-up Gen. surgery 2 weeks] Impression: [Nonthrombosed external hemorrhoid Bright red blood per rectum] Definitive disposition and diagnosis as appropriate pending reevaluation and review of above. Rectal Pain Score (Numeric/FACES): 4 - Related Data Allergies Allergy/AdvReac Type Severity Reaction Status Date / Time No Known Allergies Allergy Verified 05/13/17 12:20 Home Meds: Home Meds . [No Known Home Meds] 05/13/17 [History] Past Medical History - Past Health History Medical/Surgical History: Denies Medical/Surgical History HEENT History: Reports: None Cardiovascular History: Reports: None Respiratory History: Reports: None Gastrointestinal History: Reports: None Genitourinary History: Reports: None Musculoskeletal History: Reports: None Neurological History: Reports: None Psychiatric History: Reports: None Endocrine/Metabolic History: Reports: None Hematologic History: Reports: None Immunologic History: Reports: None Oncologic (Cancer) History: Reports: None Dermatologic History: Reports: None - Infectious Disease History Infectious Disease History: Reports: Chicken Pox - Past Surgical History Dermatological Surgical History: Reports: Other (See Below) Social & Family History - Family History Family Medical History: Noncontributory - Tobacco Use Smoking Status *Q: Never Smoker Second Hand Smoke Exposure: No - Caffeine Use Caffeine Use: Reports: Soda - Alcohol Use Days Per Week of Alcohol Use: 0 - Recreational Drug Use Recreational Drug Use: No ED ROS GENERAL - Review of Systems Review Of Systems: ROS reveals no pertinent complaints other than HPI. ED EXAM, GENERAL - Physical Exam Exam: See Below Course - Vital Signs Last Recorded V/S: Last Vital Signs Temp 98.5 F 05/13/17 12:15 Pulse 69 05/13/17 12:15 Resp 18 05/13/17 12:15 BP 127/70 05/13/17 12:15 Pulse Ox 96 05/13/17 12:15 - Orders/Labs/Meds Orders: Active Orders 24 hr Category Date Time Status UA W/MICROSCOPIC [URIN] Stat Lab 05/13/17 12:40 Ordered Labs: Laboratory Tests 05/13/17 05/13/17 Range/Units 12:50 12:50 WBC 7.76 (4.0-11.0) K/uL RBC 4.76 (4.50-5.90) M/uL Hgb 12.3 L (13.0-17.0) g/dL Hct 37.8 L (38.0-50.0) % MCV 79.4 L (80.0-98.0) fL MCH 25.8 L (27.0-32.0) pg MCHC 32.5 (31.0-37.0) g/dL RDW Std Deviation 47.7 (28.0-62.0) fl RDW Coeff of Eduardo 16 H (11.0-15.0) % Plt Count 221 (150-400) K/uL MPV 10.20 (7.40-12.00) fL Neut % (Auto) 61.6 (48.0-80.0) % Lymph % (Auto) 29.1 (16.0-40.0) % [place] % (Auto) 5.8 (0.0-15.0) % Eos % (Auto) 3.2 (0.0-7.0) % Baso % (Auto) 0.3 (0.0-1.5) % Neut # (Auto) 4.8 (1.4-5.7) K/uL Lymph # (Auto) 2.3 (0.6-2.4) K/uL [place] # (Auto) 0.5 (0.0-0.8) K/uL Eos # (Auto) 0.3 (0.0-0.7) K/uL Baso # (Auto) 0.0 (0.0-0.1) K/uL Nucleated RBC % 0.0 /100WBC Nucleated RBCs # 0 K/uL Sodium 141 (136-146) mmol/L Potassium 4.2 (3.5-5.1) mmol/L Chloride 110 (98-110) mmol/L Carbon Dioxide 24 (21-31) mmol/L BUN 19 (6.0-23.0) mg/dL Creatinine 1.0 (0.6-1.5) mg/dL Est Cr Clr Drug Dosing 121.02 mL/min Estimated GFR (MDRD) > 60.0 ml/min Glucose 105 (60-110) mg/dL Calcium 9.1 (8.8-10.8) mg/dL Total Bilirubin 0.4 (0.1-1.5) mg/dL AST 16 (5-40) IU/L ALT 16 (8-54) IU/L Alkaline Phosphatase 102 (40-150) Troponin I < 0.10 (0.0-0.29) NG/ML Total Protein 7.1 (6.0-8.0) g/dL Albumin 4.1 (3.5-5.0) g/dL Globulin 3.0 (2.0-3.5) g/dL Albumin/Globulin Ratio 1.4 (1.3-2.8) Lipase 34 (7-80) U/L Meds: Medications Discontinued Medications Generic Name Dose Route Start Last Admin Trade Name Fior PRN Reason Stop Dose Admin Sodium Chloride 500 mls @ 999 mls/hr 05/13/17 12:45 Normal Saline IV STAT AURY Departure - Departure Time of Disposition: 13:35 Disposition: Home, Self-Care 01 Condition: Good Clinical Impression: External hemorrhoid - Discharge Information Referrals: Harry Sunshine MD [Primary Care Provider] - Forms: ED Department Discharge Additional Instructions: Medication as discussed the hydrocortisone and suppositories Baby wipes may benefit Stool softener such as docusate were MiraLAX, both are not required Sitz bath as discussed Return if symptoms persist or worsen or new concerning symptoms develop Follow-up with general surgery within 2 weeks [facility] - General Surgery [address], [address] [place] [address] The following information is given to patients seen in the emergency department who are being discharged to home. This information is to outline your options for follow-up care. We provide all patients seen in our emergency department with a follow-up referral. The need for follow-up, as well as the timing and circumstances, are variable depending upon the specifics of your emergency department visit. If you don't have a primary care physician on staff, we will provide you with a referral. We always advise you to contact your personal physician following an emergency department visit to inform them of the circumstance of the visit and for follow-up with them and/or the need for any referrals to a consulting specialist. The emergency department will also refer you to a specialist when appropriate. This referral assures that you have the opportunity for follow-up care with a specialist. All of these measure are taken in an effort to provide you with optimal care, which includes your follow-up. Under all circumstances we always encourage you to contact your private physician who remains a resource for coordinating your care. When calling for follow-up care, please make the office aware that this follow-up is from your recent emergency room visit. If for any reason you are refused follow-up, please contact the [facility] emergency department at and asked to speak to the emergency department charge nurse. - My Orders Last 24 Hours: My Active Orders 05/13/17 12:40 UA W/MICROSCOPIC [URIN] Stat - Assessment/Plan Last 24 Hours: My Active Orders 05/13/17 12:40 UA W/MICROSCOPIC [URIN] Stat
[2017-05-13] MEDS ORDERED: Sodium Chloride 0.9% 500 ML IV SCH (12:45)
[2017-05-13 13:18] LABS: CHLORIDE,CL 110 mmol/L (98-110); SODIUM,NA 141 mmol/L (136-146)
[2017-05-13 13:55] VITALS: BP 117/71
== END 2017-05-13 13:54 | disposition home or self-care (01) ==
LOC: MW.ED 11:25
DX: K62.5 Hemorrhage of anus and rectum (principal); K64.4 Residual hemorrhoidal skin tags
CPT/HCPCS: 36415; 80053; 83690; 84484; 85025; 99283

== ENCOUNTER 2022-09-21 11:38 | Emergency (ER) | payer SELFPAY ==
[2022-09-21 12:29] VITALS: BP 140/93; PULSE 60
[2022-09-21 12:41] LABS: BASOPHILS PERCENT AUTO 0.5 % (0.0-1.5); EOSINOPHILS ABSOLUTE AUTO 0.2 K/uL (0.0-0.7); EOSINOPHILS PERCENT AUTO 3.4 % (0.0-7.0); HEMATOCRIT 40.5 % (38.0-50.0); HEMOGLOBIN 13.6 g/dL (13.0-17.0); LYMPHOCYTES ABSOLUTE AUTO 2.2 K/uL (0.6-2.4); LYMPHOCYTES PERCENT AUTO 34.6 % (16.0-40.0); MEAN CORPUSCULAR HEMOGLOBIN 26.2 pg (27.0-32.0); MEAN CORPUSCULAR HGB CONC 33.6 g/dL (31.0-37.0); MEAN CORPUSCULAR VOLUME 77.9 fL (80.0-98.0); MONOCYTES ABSOLUTE AUTO 0.4 K/uL (0.0-0.8); MONOCYTES PERCENT AUTO 6.1 % (0.0-15.0); NEUTROPHILS ABSOLUTE AUTO 3.4 K/uL (1.4-5.7); NEUTROPHILS PERCENT AUTO 55.4 % (48.0-80.0); PLATELET COUNT,PLT 216 K/uL (150-400); WHITE BLOOD CELL COUNT,WBC 6.21 K/uL (4.0-11.0)
[2022-09-21 12:48] LABS: BASE EXCESS VENOUS 2.5 (-2.0-3.0); BICARBONATE,VENOUS 29 mEq/L (23-28); PCO2 VENOUS 49 mmHG (41-51); PH,VENOUS 7.38 (7.31-7.41)
[2022-09-21 12:52] LABS: PO2 VENOUS < 30 mmHG
[2022-09-21 12:59] LABS: HEMOGLOBIN A1C 9.6 %
[2022-09-21 13:12] LABS: A/G RATIO 0.9 (0.9-1.6); ALBUMIN 3.6 g/dL (3.4-5.0); BILIRUBIN TOTAL 0.3 mg/dL (0.2-1.0); CALCIUM 8.7 mg/dL (8.5-10.1); CARBON DIOXIDE,CO2 26.7 mmol/L (21.0-32.0); EST CRCL DRUG DOSING (CG) 115.31 mL/min; PROTEIN TOTAL,TP 7.4 g/dL (6.4-8.2)
== END 2022-09-21 14:13 | disposition home or self-care (01) ==
LOC: MW.ED 11:38
DX: E11.65 Type 2 diabetes mellitus with hyperglycemia (principal); Z79.84 Long term (current) use of oral hypoglycemic drugs
CPT/HCPCS: 36415; 80053; 82009; 82803; 82947; 83036; 85025; 99283; 99284